=== PATIENT | female | born 1975 | race Caucasian/White ===

== ENCOUNTER 2016-12-23 22:20 | Observation (INO) | payer OTHER ==
[~2016-12-23] VITALS: Ht 175.3 cm; Wt 48.1 kg
[2016-12-24] VITALS (19 sets, daily range): BP systolic 79–121; BP diastolic 41–77
--- NOTE | 2016-12-24 03:36 | Progress Note ---
Subjective General Admission History and Physical Examination Patient Name: Radha Ruiz Admission Date: December 24, 2016 Primary Care Provider: Laly Ye M.D. Attending Physician: Hugo Sharma M.D. Admitting Physician: Hugo Sharma M.D. 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 [facility] ER evaluation was consistent with cystitis in setting of chronic suprapubic catheter, hypotension. Secondary to the above, the patient was admitted by Hugo Sharma M.D. for further evaluation and treatment. The history of present illness began 1-2 days prior to admission when the patient had episodes of mild nausea without vomiting, generalized feeling of weakness, episodes of diaphoresis, these were unassociated with fever or chills. Secondary to the above the patient presented to [facility] emergency department due to suspected UTI. [facility] ER evaluation showed the patient to have normal vital signs other than development of hypotension in the emergency department. She was afebrile. WBC was within normal limits. Procalcitonin was within normal limits. Her SIRS/QSOFA were unremarkable. Lactic acid was elevated but repeat was within normal limits. Urine sediment was abnormal however this occurred in the setting of chronic suprapubic catheter. Secondary to her hypotension of unknown etiology the patient was admitted for further evaluation and treatment. PAST MEDICAL HISTORY Illnesses: 1. Quadriplegia secondary to spinal cord AVM 2. Recurrent UTI 3. Cholelithiasis 4. Chronic pain syndrome Allergies: 1. Penicillin 2. Bactrim 3. Phenergan 4. Levaquin Medications: 1. Baclofen 20 mg 1 by mouth 5 times a day 2. Citalopram 20 mg by mouth daily 3. Gabapentin 600 mg by mouth 4 times a day 4. Lorazepam 2 mg by mouth daily at bedtime 5. Vitamin D dosage unknown Surgery: 1. Endoscopy 2. Suprapubic catheter placement 3. Embolization-AVM Injuries: 1. No significant Hospitalizations: 1. For above surgery and medical problems FAMILY HISTORY Parents: 1. Father, Chet, , 60, alcoholic cirrhosis, 2. Mother, Lisandra, living, 61, COPD, drug abuse, heart disease, adrenal insufficiency Siblings: 1. Female, Idris, living, 31, drug abuse Children: 1. None Other significant family history: None SOCIAL HISTORY 1. Marital Status: 2. Church: None 3. Education: College, bachelors degree 4. Employment History: Unemployed 5. Occupational health exposures: None HABITS 1. Tobacco: None 2. Drugs: None 3. Alcohol: None 4. Caffeine: 2 cups per day-coffee HEALTH SUPERVISION Item/Test 1. Not reviewed IMMUNIZATIONS: 1. Pneumococcal: No previous 2. Influenza: 2016 3. Tetanus: Unknown ADVANCED DIRECTIVES: 1. Living well: Yes 2. POLST: Yes 3. CODE STATUS: FULL CODE 4. Durable Power Claims Configuration Analyst Health care: Yes, 5. Donor card: No REVIEW OF SYSTEMS Remarkable for those things stated in the history of present illness and past medical history. Seventeen point review of system completed with the following notable findings: General: Weight loss, fatigue, pain, weakness Skin: Skin/hair changes Eyes: Excessive tearing, dryness, blurred vision Throat: Hoarseness, swallowing, sore throat Respiratory: Shortness of breath Cardiovascular: Hypotension, shortness of breath when lying flat Gastrointestinal: Nausea, loss of appetite, heartburn, constipation, cholelithiasis Musculoskeletal: Joint stiffness, joint pain, muscle cramping Neurological: Paralysis-quadriplegia, sensation changes Endocrine: Thyroid problems, heat/cold intolerance, excessive thirst/urination Psychological: Depression, difficulty sleeping, anxiety Genitalia: Irregular heavy periods Physical Exam General Appearance Alert, Oriented X3, Cooperative, No acute distress HEENT Atraumatic, PERRLA, EOMI, Moist mucous membranes Lungs Clear to auscultation, Normal air movement Neck Supple, No JVD Cardiovascular Regular rate and rhythm, Normal S1 and S2, No murmurs, gallops, rubs Abdomen Normal bowel sounds, Soft, No guarding, mild diffuse tenderness Extremities No cyanosis, No clubbing, No edema Skin No Rashes, No Breakdown Neurological quadriplegia Psych/Mental Status Mental status normal, Mood normal LAB Results Laboratory Tests 12/24 12/24 12/23 12/23 0115 0001 2330 2327 Chemistry Lactic Acid (0.4 - 2.0 mmol/L) 0.9 4.7 Procalcitonin (0 - 0.5 ng/mL) <0.5 Toxicology Urine Opiates Screen (NEGATIVE) NEGATIVE Urine Methadone Screen (NEGATIVE) NEGATIVE Ur Barbiturates Screen (NEGATIVE) NEGATIVE U Amphetamin/Meth Scrn (NEGATIVE) NEGATIVE MDMA (Ecstasy) Screen (NEGATIVE) NEGATIVE U Benzodiazepines Scrn (NEGATIVE) NEGATIVE Urine Cocaine Screen (NEGATIVE) NEGATIVE U Cannabinoids Screen (NEGATIVE) NEGATIVE Urines Urine Color YELLOW Urine Appearance CLEAR Urine pH (5.0 - 8.0) 6.0 Ur Specific [place] (1.010 - 1.030) >= 1.030 Urine Protein (NEGATIVE) TRACE Urine Ketones (NEGATIVE) 3+ Urine Blood (NEGATIVE) 3+ Urine Nitrite (NEGATIVE) POSITIVE Urine Bilirubin (NEGATIVE) 1+ Urine Urobilinogen (0.2 - 1.0 EU/dL) 1.0 Ur Leukocyte Esterase (NEGATIVE) NEGATIVE Urine RBC (0 - 1 rbc/hpf) 5-10 Urine WBC (0 - 1 wbc/hpf) 0-1 Ur Epithelial Cells (0 - 5 EPI/hpf) 0-1 Urine Bacteria (NONE SEEN) FEW (1+) Urine Glucose (NEGATIVE) NEGATIVE Urine Comment CULTURE INDICATED 12/23 2327 Chemistry Plasma Sodium (136 - 145 mmol/L) 142 Plasma Potassium (3.5 - 5.1 mmol/L) 4.0 Plasma Chloride (98 - 107 mmol/L) 100 CO2 (Enzymatic) (21 - 32 mmol/L) 31 BUN (7 - 18 mg/dL) 9 Creatinine (0.6 - 1.3 mg/dL) 0.6 Est GFR ( Amer) (mL/min) >60 Est GFR (Non-Af Amer) (mL/min) >60 Glucose (70 - 110 mg/dL) 150 Plasma Calcium (8.5 - 10.1 mg/dL) 8.8 Plasma Magnesium (1.8 - 2.4 mg/dL) 1.4 Total Bilirubin (0.0 - 1.0 mg/dL) 0.5 AST (15 - 37 U/L) 13 ALT (12 - 78 U/L) 14 Alkaline Phosphatase (46 - 116 U/L) 48 Creatine Kinase (24 - 260 U/L) 39 Troponin (0.00 - 1.5 ng/mL) <0.05 Total Protein (6.4 - 8.2 g/dL) 7.2 Albumin (3.3 - 5.0 g/dL) 3.5 Lipase (73 - 393 U/L) 78 TSH 3rd Generation (0.34 - 3.74 uIU/mL) 1.534 Hematology WBC (4.5 - 11.5 K/uL) 9.3 RBC (4.00 - 5.20 M/uL) 4.64 Hgb (12.0 - 16.0 gm/dL) 13.1 Hct (36.0 - 46.0 %) 41.1 MCV (80 - 100 fL) 89 MCH (26 - 34 pg) 28 RDW (11.6 - 14.8 %) 13.0 Gran % (53 - 90) 84.6 Lymph % (Auto) (25 - 40 %) 12.5 [place] % (Auto) (3 - 14 %) 2.9 Plt Count, EDTA (150 - 400 K/uL) 223 PUBS MCHC (31 - 37 g/dL) 32 Microbiology Date/Time Procedure - Status Source Growth 12/24 0040 Blood Culture - RECD BLOOD 12/24 0001 Blood Culture - RECD BLOOD 12/23 2330 Urine Culture - RECD URINE CC Imaging Chest X-Ray IMPRESSION: 1. Negative chest. Dictated by: SATHISH NUNEZ MD D: HAYLIE;12/24/[address] Scan Abdomen and Pelvis IMPRESSION: 1. Cholelithiasis 2. Moderate stool 3. Preliminary results submitted by Dr. Washington, [facility] radiology. All CT scans at this facility use dose modulation, iterative reconstruction, and/or weight-based dosing when appropriate to reduce radiation dose to as low as reasonably achievable. Dictated by: SATHISH NUNEZ MD D: HAYLIE;12/24/16 0530 Assessment and Plan Problem List 1. Hypotension Plan -Patient noted to have findings of hypertension in the emergency department -IV fluid therapy with correction of hypotension -SIRS/QSOFA negative -Blood pressure normalized at this time with normal vital signs no tachycardia or fever. -Probably mild dehydration on presentation, urine specific gravity 1 0.030 -IV fluid therapy, encourage oral intake -Monitor 2. UTI (urinary tract infection) due to urinary indwelling catheter Plan -Patient with abnormal urinary sediment in setting of chronic suprapubic catheter. -Patient afebrile, normal WBC, normal Procalcitonin -Hold antimicrobial therapy at this time -Recheck CBC with manual differential, Procalcitonin this a.m. 3. Cholelithiasis Status Chronic Onset Date Unknown Plan -Patient with findings of cholelithiasis-chronic -No right upper quadrant pain -Liver function tests unremarkable -No findings of cholecystitis on CT -Monitor 4. Hypomagnesemia Status Acute Onset Date Unknown Plan -Patient with findings of hypomagnesemia -IV/oral magnesium supplementation -Slow-Mag one by mouth 3 times a day, mag sulfate 2 g IV -Monitor 5. Hyperglycemia Status Acute Onset Date Unknown Plan -Patient with mild hyperglycemia -Check hemoglobin A1c -Monitor Current status: Fair, unstable Anticipated discharge date: Anticipated discharge this p.m. or in a.m. Anticipated discharge placement: Home Patient care time: Time spent in chart review, patient interview, physical exam, CPOE, and care documentation: 70 minutes Visit to patient today: 2 Complexity of care: High E&M Codes Admission: Obsv-Comp/High/[id number]
--- NOTE | 2016-12-24 05:19 | DIAGNOSTIC IMAGING REPORT ---
PROCEDURE: XR CHEST 1 VIEW INDICATION: UTI TECHNIQUE: Portable AP view 01:02 a.m. COMPARISON: Chest x-ray 03/13/2016 FINDINGS: Lungs are clear. Heart and mediastinum are normal. Thorax is normal. No significant interval change. IMPRESSION: 1. Negative chest.
[2016-12-24] MEDS ORDERED: GABAPENTIN600 MG PO (05:27)
[2016-12-24] MEDS ORDERED: ATIVAN1 MG PO (05:28)
[2016-12-24] MEDS ORDERED: BACLOFEN20 MG PO (05:28)
[2016-12-24] MEDS ORDERED: CITALOPRAM HYDR20 MG PO (05:29)
[2016-12-24] MEDS ORDERED: VITAMIN D-31000 UNIT PO (05:29)
--- NOTE | 2016-12-24 05:30 | DIAGNOSTIC IMAGING REPORT ---
PROCEDURE: CT ABD/PELVIS WITH CONTRAST CLINICAL INDICATION: PAIN TECHNIQUE: 100 ml of Isovue 300 were injected intravenously and axial images were obtained of the entire abdomen and pelvis with sagittal and coronal reformations. COMPARISON: None. FINDINGS: ABDOMEN: Mild right basilar atelectasis/scarring. Normal heart size. 1.5 cm of cysts in the hepatic dome. Small gallstones present but no biliary distention or inflammatory changes. Pancreas, spleen, kidneys and adrenal glands are normal. Minor atherosclerosis of the aorta. Nonspecific bowel gas pattern. Moderate stool. PELVIS: Suprapubic catheter in place. Uterus and adnexa are unremarkable. Normal appendix. No free fluid or inflammatory changes. Muscular atrophy of the pelvic girdle. Marked levoconvex curvature of the spine. Severe osteopenia. IMPRESSION: 1. Cholelithiasis 2. Moderate stool 3. Preliminary results submitted by Dr. Washington, [facility] radiology. All CT scans at this facility use dose modulation, iterative reconstruction, and/or weight-based dosing when appropriate to reduce radiation dose to as low as reasonably achievable.
[2016-12-25 02:06] VITALS: BP 111/70
--- NOTE | 2016-12-25 02:29 | ED DISCHARGE INSTRUCTIONS ---
Patient: ANGELINE SCHUMACHER CANDICE General Instructions [facility]ly [facility] VisitID: [id number] [place] [address] 41y, F Registration Date/Time: 12/23/2016 Idiopathic hypotension. Gallbladder disease with gallstone. No gallstone in the cystic or bile duct, obstruction, cholecystitis or biliary colic. No cholangitis. Constipation Acute urinary tract infection with cystitis associated with indwelling catheter. 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 INSTRUCTIONS Prescription Medications: Macrobid 100 mg: Take 1 capsule orally every 12 hours for 7 days. No refills. Substitution is permissible. ADDITIONAL INFORMATION Constipation (Adult) Constipation is bowel movements that are less frequent than usual. Stools often become very hard and difficult to pass. This may lead to abdominal pain and bloating. It may also cause painful bowel movements. Constipation may be due to a diet thats low in fiber. Some medications, especially pain medications, can also cause it. Constipation may be treated with enemas, suppositories, laxatives or stool softeners. Your doctor will advise you which will work best for you. Follow the advice below to help avoid this problem in the future. Home Care Medication: Take any medicines as directed. Some laxatives are safe only for occasional use. Others can be taken on a regular basis. Talk to your doctor or pharmacist if you have questions. General Care: Prescription pain medications can cause constipation. If you are prescribed pain medications, ask the doctor whether you should also take a stool softener. A diet high in fiber with plenty of fluids helps to maintain regular, soft bowel movements. The following foods are good sources of dietary fiber: Cereals and breads: Whole grain cereal with bran, oatmeal, rolled oats, whole grain breads Fruits: All fruits (fresh and dried), raisins, prunes, apricots, berries, figs Vegetables: Any fresh vegetables, especially peas, broccoli, brussels sprouts, winter squash, green beans, cauliflower, hagen beans, carrots Other: Popcorn, brown rice Drink plenty of water when you increase the amount of fiber you eat. Follow Up with your doctor or return to this facility if symptoms do not improve in the next few days. You may require further tests or a referral to a specialist. Get Prompt Medical Attention if any of the following occur: Fever over 100.4F (38C) Failure to resume normal bowel movements Increasing abdominal or back pain Nausea or vomiting Abdominal swelling Blood in the stool Weakness, dizziness or fainting Unexpected vaginal bleeding You have been given the following additional information: Constipation (Adult) (Electronically signed by Aaron Zapata DO 12/24/2016 4:05)
--- NOTE | 2016-12-25 02:29 | ED CLINICAL REPORT ---
Clinical Report - Physicians/Mid Levels [facility] [address], [place] [address] 12/24/2016 0:58 Patient: ANGELINE SCHUMACHER Time Seen: 22:45. Arrived- By ambulance. Historian- patient and EMS personnel. HISTORY OF PRESENT ILLNESS Chief Complaint: PELVIC PAIN and WEAKNESS. This started yesterday and is still present. It was gradual in onset and has been waxing/waning. At its maximum, severity described as moderate. When seen in the E.D., severity described as moderate. Modifying factors. Not worsened by anything. Not relieved by anything. No headache. She has had fatigue, muscle aches and weakness. (Pt with generalized weakness, nausea and lower / suprapubic area pain today. States this is similar to prior episodes of UTI. She has noted increased cloudiness and odor to her urine. She also reports constipation (no BM in 7 days). 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 Similar symptoms previously: Diagnosis: (UTI). Recent medical care: Not recently seen/assessed. REVIEW OF SYSTEMS The patient has had a subjective low grade fever (possible). No sore throat, sinus drainage, nasal congestion, difficulty breathing or chest pain. No vomiting, diarrhea, black stools, bloody stools or difficulty with urination. No skin rash, calf pain or headache. The patient has had moderate, constant abdominal pain. The pain is described as located in the suprapubic region and lower abdomen. This abdominal pain is similar to previous symptoms. She has had difficulty with ambulation (quadriplegic). It has been associated with weakness in both legs. It has been similar to previous symptoms. All systems otherwise negative, except as recorded above. PAST HISTORY See nurses notes. Quadriplegia secondary to spinal AVM. Frequent UTI's Gallstone(s). Arteriovenous Malformation. Prior decubitus ulcer left buttock area Surgeries: Embolizations of spinal cord AVM. Endoscopy. Supra pubic catheter. Medications: Neurontin Oral. LORazepam Oral. Citalopram Hydrobromide Oral. Baclofen External. Allergies: Amoxicillin. Bactrim. Levaquin. Phenergan. SOCIAL HISTORY No alcohol use or drug use. Is a local resident. PCP: Mai Ellis. ADDITIONAL NOTES The nursing notes have been reviewed. PHYSICAL EXAM Vital Signs: Blood pressure: BP 107 / 75. Heart rate: 87. Respiratory rate 18. Temperature: 97.2 tympanic. Oxygen saturation: 95 % room air. Appearance: Alert. Lethargic. Patient in mild distress. Eyes: Eyes normal inspection. No scleral icterus or pale conjunctivae. ENT: Pharynx normal. No pharyngeal erythema or tonsillar exudate. The mucous membranes are not dry. Neck: Normal inspection. Neck supple. CVS: Normal heart rate and rhythm. Heart sounds normal. Pulses normal. Respiratory: No respiratory distress. Breath sounds normal. Abdomen: No visible injury. Soft. Moderate tenderness in the lower abdomen. No mass. No rebound tenderness or guarding. Back: Normal inspection. Skin: Skin warm and dry. Normal skin color. (Superficial left gluteal area decubitus ulcer). Extremities: No calf tenderness. (Superficial left gluteal area decubitus ulcer). Neuro: Oriented X 3. She has had weakness, (flacid paralysis bilateral upper and lower extremities). LABS, X-RAYS, AND EKG EKG: EKG time: (03:11). Rate: 90. Nondiagnostic Q waves in lead aVR and V1. Left axis deviation. Non-specific ST segment / T wave abnormalities. Non-specific T wave flattening (diffusely). The study has been interpreted contemporaneously by me. The EKG appears to be a good tracing. Rhythm Strip #1: Normal sinus rhythm. Regular rhythm. No ectopy. Non-specific ST segment / T-wave abnormalities. Chest X-ray: Normal lung markings present. Normal heart size. Mediastinum normal. Great vessels normal. No infiltrate. (possible dilated loops of bowel / small bowel). Views: erect AP (portable). Technique: rotated. The X-rays were interpreted contemporaneously by me. Abdominal CT: Gallstone present. Normal pancreas. Appendix normal. Cholelithiasis Mildly increased amount of colonic stool. No evidence of obstruction. No findings to suggest hydronephrosis Urinary bladder is nearly empty, limiting study Likely dome of liver cyst. Study type: abdomen and pelvis. Abdominal CT performed with IV contrast. The study was independently viewed by me, interpreted by the radiologist and discussed with the radiologist. Laboratory Tests: [id number]: (YUMIKO: 12/24/2016 00:01) ( MsgRcvd 12/24/2016 03:19) Final results Test Result Flag Units (Reference) PROCALCITONIN <0.5 ng/mL (0-0.5) PCT Concentration: Interpretation : Risk/option for action PCT <=0.5 ng/mL : Systemic : Low risk forinfection(sepsis): progression to severeis not likely. : systemic infection.Local bacterial : CAUTION-PCT levelsinfection is : below 0.5 ng/mL do notpossible. : exclude an infection,because localizedinfections (withoutsystemic signs) may beassociated with suchlow levels. If PCT ismeasured very earlyafter a bacterialchallenge (usually <6hours), these valuesmay still be low. Inthis case PCT shouldbe re-assessed 6-24hours later. PCT >0.5 and : Systemic infection: Moderate risk for<= 2 ng/mL : (sepsis) is : progression to severepossible, but : systemic infection.other conditions : The patient should beare known to : closely monitoredelevate PCT. : both clinically andby re-assessing PCTwithin 6-24 hours. PCT > 2 ng/mL : Systemic infection: High risk for(sepsis) is likely: progression to severeunless other : systemic infection.causes are known. : PCT >= 10 ng/mL : Important systemic: High likelihood ofinflammatory : severe sepsis orresponse, almost : septic shock.exclusively due to:severe bacterial :sepsis or septic :shock. : Lactate, Serum: (YUMIKO: 12/24/2016 01:15) ( [facility] 12/24/2016 01:42) Final results Test Result Flag Units (Reference) LACTIC ACID 0.9 mmol/L (0.4-2.0) [id number]: (YUMIKO: 12/23/2016 23:02) ( [facility] 12/24/2016 03:53) Final results Test Result Flag Units (Reference) D-DIMER QUANTITATIVE 0.29 ug/mLFEU (0.27-0.52) The primary value of this quantitative assay relates toits negative predictive value (i.e. exclusion) of pulmonaryembolism/deep vein thrombosis/DIC.Elevated levels of d-dimer may also occur with:, age, cancer, inflammation, liver disease,post-op, infection, hematoma, coronary disease, peripheralarteriopathy, bleeding disorders and thrombolytic treatment.Results should be correlated with other clinical andradiological data.Testing Methodology: Latex Immunoassay . (Repeat lactic acid 0.9 (normal)). CBC: WBC 9.3. Hgb 13.1. HCT 41.1. Platelets 223. Granulocytes: 84%. Chemistries: Na- 142. K- 4.0. Cl- 100. HCO3- 31. Glucose - 150. BUN- 9. Cr- 0.6. Total protein 7.2. Albumin 3.5. Bilirubin: Total: 0.5. AST 13. Alkaline phosphatase 48. Calcium 8.8. Lipase normal 78. Lactic acid positive 4.7. ALT 14. Moderate hypomagnesemia- 1.4. Cardiac Labs: CK 39. Troponin-I < 0.05. Urinalysis: WBCs present (0 - 1). 5-10 RBCs/hpf. Bacteria present (few (1+)). Urine dipstick: Sp Gr 1.030; pH 6; leukocytes negative; nitrite positive; trace protein; glucose normal; moderate ketones; small bilirubin; (blood 3+). Microbiology: Blood culture x2 and urine culture ordered. Pulse Oximetry: 12/24/2016 01:25 O2 saturation: 96%. (FIO2 - room air). Interpretation: normal. Other Labs: Thyroid stimulating hormone (TSH) 1.534. PROGRESS AND PROCEDURES Course of Care: Normal Saline 2 + liters IVPB given. Ativan 1mg IVP given. Zofran 4 mg IVP given. Ceftriaxone 2 gm IVP given. Pt with SBP in 90's during most of stay, then dropped into the 70's and 80's. Pt is quadriplegic and likely has autonomic instability which may be complicating the clinical picture. Initial lactic acid was elevated, but repeat was normal. Pt's appearance is improved during her stay, despite the low BP. She also is not tachycardic. No CT or plain film evidence of PE, AAA, Ao disection, or pneumonia or cholecystitis / ascending cholangitis. I will hold norepi for now as her hypotension is responding to IV fluids and, other than one elevated lactate, there is no indication of sepsis and there are possible alternative (and more likely) etiologies for her transient hypotension than septic shock 12/24/2016 03:13 BP: 95/55. HR: 94. RR: 14. O2 saturation: 96%. Temp: 97.6 F. Critical care performed (60 minutes). Time includes: direct patient care, patient reassessment, coordination of patient care, interpretation of data (laboratory data, pulse oximetry and chest xrays), review of patient's medical records, family consultation regarding treatment decisions and documentation of patient care- see progress notes. Procedures excluded from critical care time: electrocardiography. Discussed case with hospitalist, (Edith call returned 00:53 - states she does not have admission criteria and requests repeat lactic acid before considering admission). Reviewed test results. Agreed upon treatment plan. Patient/family counseled. Old ED records reviewed. Admission orders written. Disposition: Admitted to the Critical Care Unit. Condition: guarded. CLINICAL IMPRESSION Idiopathic hypotension. Gallbladder disease with gallstone. No gallstone in the cystic or bile duct, obstruction, cholecystitis or biliary colic. No cholangitis. Constipation Acute urinary tract infection with cystitis associated with indwelling catheter. 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 Clinical picture does not suggest cholecystitis. INSTRUCTIONS Prescription Medications: Macrobid 100 mg: Take 1 capsule orally every 12 hours for 7 days. No refills. Substitution is permissible. (Electronically signed by Aaron Zapata DO 12/24/2016 4:05)
--- NOTE | 2016-12-25 02:29 | ED ORDER SUMMARY ---
..... Patient: ANGELINE SCHUMACHER OrderSheet [facility] VisitID: [id number] [address] [place] [address] 41y, F Registration Date/Time: 12/23/2016 ORDER SHEET Weight: 45 kg Allergies: Amoxicillin, Bactrim, Levaquin, Phenergan GENERAL ORDERS: CT Abd/Pel w Cont (No) (BUN and Cr Normal) Urgent (01:09 12/24/2016 [facility]) (Ack 1:14 [facility] Staff Weapons Officer) (1:52 [facility] Staff Weapons Officer) PCT (Procalcitonin) Urgent (02:44 12/24/2016 [facility]) [facility] EKG - ER Stat (02:55 12/24/2016 [facility]) (Ack 2:56 [facility] Staff Weapons Officer) (3:19 CHategekimana) Student Truck Driver (Continuous) (02:56 12/24/2016 [facility]) (3:07 DBeyer R.N.) MEDICATION ORDERS: IV FLUIDS: IV NS : initial bolus 1000 mL (1000 mL/hr), then 1000 mL/hr for X2 (NOW) (01:19 12/24/2016 [facility]) (1:31 DBeyer R.N.) Ceftriaxone IV 2 gm/50mL (NOW) (01:19 12/24/2016 [facility]) (1:31 DBeyer R.N.) Ativan IV 1 mg (HIGH ALERT MEDICATION, NOW) (01:19 12/24/2016 [facility]) (1:33 DBeyer R.N.) Zofran IV 4 mg (may repeat x 1 prn nausea) (02:38 12/24/2016 [facility]) (Ack 2:38 RCollier R.N.) (2:42 RCollier R.N.) ORDER SHEET NOTES: [Electronically signed by Aaron Zapata DO (04:05 12/24/2016)] [Electronically signed by Pb Sampson R.N. (04:15 12/24/2016)] [Electronically locked/signed by Pb Sampson R.N. (04:15 12/24/2016)]
--- NOTE | 2016-12-25 02:29 | ED NURSING NOTES ---
Clinical Report - [facility] [address] [place] [address] 12/24/2016 0:58 Patient: ANGELINE SCHUMACHER TRIAGE Chief Complaint: (weakness). --01:26 Pb Sampson R.N. Weight: 45 kg. Height/Length: 69 inches. BMI: 14.7. --01:27 Pb Sampson R.N. Allergies Amoxicillin. Bactrim. Levaquin. Phenergan. --02:43 Pearl Hayward R.N. PROBLEMS: Suprapubic catheter. Neck Pain. Paralysis. Chronic uti. Gallstone(s). Arteriovenous Malformation. --02:43 Pearl Hayward R.N. ADDITIONAL SURGERIES: Embolizations. Endoscopy. Supra pubic catheter. --02:43 Pearl Hayward R.N. NURSING PROGRESS NOTES ( all charting on paper up till 0120). --01:22 Pb Sampson R.N. ( Pt to CT, 2nd L of fluid started bp 71/49). --01:25 Pb Sampson R.N. 01:25 12/24/16. BP: 71/49. O2 saturation: 96%. --01:25 Pb Sampson R.N. ( MD aware of bp). --01:26 Pb Sampson R.N. 03:40 12/23/2016 Ativan (LORazepam) IVP 0.5 mg given over 2 minute(s) via site #1. Allergies verified, confirmed 5 rights and sedative warning given to the patient. IV patency established. IV site checked: no pain, redness, or swelling. IV flushed thoroughly pre- and post-medication administration. IVP given by RN. --01:33 Pb Sampson R.N. 01:06 12/24/2016 Started 2 gm of Ceftriaxone IVPB in bag #1 50 mL; at 100 mL/hr over 30 minute(s) via site #1 via IV pump. Allergies verified and confirmed 5 rights. IV patency established. IV site checked: no pain, redness, or swelling. IV flushed thoroughly pre- and post-medication administration. Completed per protocol. --: Pb Sampson R.N. 01:12/24/2016 Site #1 started via IV in the right antecubital space with an 22g angiocath; two attempts. Blood drawn: rainbow set and cultures x1. Labeled in the presence of the patient. Saline lock flushed with saline. --01:30 Pb Sampson R.N. 01:12/24/2016 Started bag #2 1000 mL IV Fluids IV NS (Saline); bolus of 1000 mL wide open via site #1. Allergies verified and confirmed 5 rights. IV patency established. IV site checked: no pain, redness, or swelling. IV flushed thoroughly pre- and post-medication administration (Pt received 1L previous). --01: Pb Sampson R.N. 02:42 12/24/2016 Zofran (Ondansetron HCl) IVP 4 mg given over 30 second(s) via site #1. Allergies verified and confirmed 5 rights. IV patency established. IV site checked: no pain, redness, or swelling. IV flushed thoroughly pre- and post-medication administration. IVP given by RN. --02:42 Pearl Hayward R.N. 02:59 12/24/16. Temp: 97.6 F (rectal). --02:59 Pearl Hayward R.N. Patient hygiene performed. Patient is incontinent of stool. Stool described as formed. Changed patient diaper. --03:00 Pearl Hayward R.N. 03:18 12/24/2016 IV Fluids IV NS Continued: upon admission at the rate of 1000 mL/hr bag #3. IV patency established. IV site checked: no pain, redness, or swelling. IV flushed thoroughly. --03:18 Pb Sampson R.N. EKG time: (0311 AM). EKG was ordered, performed by a tech and shown to the ED physician. --03:19 Shavon Huizar. DISPOSITION / DISCHARGE 03:13 12/24/16. BP: 95/55. HR: 94. RR: 14. O2 saturation: 96%. Temp: 97.6 F. Pain level now 11/28. --03:14 Pb Sampson R.N. Patient's personal items include: pajamas, pt still wearing; items were transported with the patient. --03:23 Pb Sampson R.N. Departure time: 1548. --03:49 Pb Sampson R.N. Locked/Released at 12/24/2016 4:15 by Pb Sampson R.N.
--- NOTE | 2016-12-25 02:29 | ED MED RECONCILIATION SUMMARY ---
Patient: ANGELINE SCHUMACHER Medication Reconciliation Report [facility] VisitID: [id number] [address] [place] [address] 41y, F Registration Date/Time: 12/23/2016 Weight: 45 kg Height/Length: 69 in. BMI: 14.7 ALLERGIES: Amoxicillin, Bactrim, Levaquin, Phenergan The patient's Home Medications are listed below: THE FOLLOWING MEDICATIONS NEED TO BE RECONCILED: Baclofen External Citalopram Hydrobromide Oral LORazepam Oral Neurontin Oral The source(s) of the original Home Medication information: Not obtained. The following Medications were given to the patient in the Emergency Department: IV NS IV Fluids bolus 1000 mL wide open, administered: 12/24/2016 1:30:00 AM Ceftriaxone [IVPB] IVPB bolus 0, then 2 gm 100 mL/hr, administered: 12/24/2016 1:06:00 AM Ativan [IVP] IVP 0.5 mg, administered: 12/23/2016 3:40:00 AM Zofran [IVP] IVP 4 mg, administered: 12/24/2016 2:42:00 AM The following Medications were prescribed to the patient: Macrobid 100 mg: Take 1 capsule orally every 12 hours for 7 days. No refills. Substitution is permissible. -- Aaron Zapata DO
--- NOTE | 2016-12-25 02:29 | ED MAR SUMMARY ---
..... Medication Administration Record [facility] [address] [place] [address] Patient: ANGELINE SCHUMACHER Visit ID: [id number] 41y, F Weight: 45.0 kg Height/Length: 69 in BMI: 14.7 ALLERGIES: Phenergan, Bactrim, Levaquin, Amoxicillin Given 03:40 12/23/2016 Pb Sampson RYamilaNYamila Medication Administered: ATIVAN [IVP] (LORAZEPAM), Dose: 0.5 mg IVP over 2 minute(s), Site: #1. Medication Ordered: Ativan IV 1 mg (HIGH ALERT MEDICATION, NOW). Start 01:06 12/24/2016 Pb Sampson R.N. Medication Administered: CEFTRIAXONE [IVPB], Dose: 2 gm IVPB over 30 minute(s), Rate: 100 mL/hr, Dispensed: 50 mL bag, Site: #1. Medication Ordered: Ceftriaxone IV 2 gm/50mL (NOW). Start 01:30 12/24/2016 Pb Sampson RYamilaNYamila, Continued Upon Admission 03:18 12/24/2016 Pb Sampson R.N. Medication Administered: IV NS (SALINE), Dose: IV Fluids, Bolus: 1000 mL wide open, Dispensed: 1000 mL bag, Site: #1 right AC. Medication Ordered: IV NS : initial bolus 1000 mL (1000 mL/hr), then 1000 mL/hr for X2 (NOW). Given 02:42 12/24/2016 Pearl Hayward RYamilaNYamila Medication Administered: ZOFRAN [IVP] (ONDANSETRON HCL), Dose: 4 mg IVP over 30 second(s), Site: #1 right AC. Medication Ordered: Zofran IV 4 mg (may repeat x 1 prn nausea).
--- NOTE | 2016-12-25 02:29 | ED MED RECONCILIATION SUMMARY ---
Patient: ANGELINE SCHUMACHER Medication Reconciliation Report [facility] VisitID: [id number] [address] [place] [address] 41y, F Registration Date/Time: 12/23/2016 Weight: 45 kg Height/Length: 69 in. BMI: 14.7 ALLERGIES: Amoxicillin, Bactrim, Levaquin, Phenergan The patient's Home Medications are listed below: THE FOLLOWING MEDICATIONS NEED TO BE RECONCILED: Baclofen External Citalopram Hydrobromide Oral LORazepam Oral Neurontin Oral The source(s) of the original Home Medication information: Not obtained. The following Medications were given to the patient in the Emergency Department: IV NS IV Fluids bolus 1000 mL wide open, administered: 12/24/2016 1:30:00 AM Ceftriaxone [IVPB] IVPB bolus 0, then 2 gm 100 mL/hr, administered: 12/24/2016 1:06:00 AM Ativan [IVP] IVP 0.5 mg, administered: 12/23/2016 3:40:00 AM Zofran [IVP] IVP 4 mg, administered: 12/24/2016 2:42:00 AM The following Medications were prescribed to the patient: Macrobid 100 mg: Take 1 capsule orally every 12 hours for 7 days. No refills. Substitution is permissible. -- Aaron Zapata DO
--- NOTE | 2016-12-25 02:29 | ED DISCHARGE INSTRUCTIONS ---
Patient: ANGELINE SCHUMACHER CANDICE General Instructions [facility] VisitID: [id number] [place] [address] 41y, F Registration Date/Time: 12/23/2016 Idiopathic hypotension. Gallbladder disease with gallstone. No gallstone in the cystic or bile duct, obstruction, cholecystitis or biliary colic. No cholangitis. Constipation Acute urinary tract infection with cystitis associated with indwelling catheter. 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 INSTRUCTIONS Prescription Medications: Macrobid 100 mg: Take 1 capsule orally every 12 hours for 7 days. No refills. Substitution is permissible. ADDITIONAL INFORMATION Constipation (Adult) Constipation is bowel movements that are less frequent than usual. Stools often become very hard and difficult to pass. This may lead to abdominal pain and bloating. It may also cause painful bowel movements. Constipation may be due to a diet thats low in fiber. Some medications, especially pain medications, can also cause it. Constipation may be treated with enemas, suppositories, laxatives or stool softeners. Your doctor will advise you which will work best for you. Follow the advice below to help avoid this problem in the future. Home Care Medication: Take any medicines as directed. Some laxatives are safe only for occasional use. Others can be taken on a regular basis. Talk to your doctor or pharmacist if you have questions. General Care: Prescription pain medications can cause constipation. If you are prescribed pain medications, ask the doctor whether you should also take a stool softener. A diet high in fiber with plenty of fluids helps to maintain regular, soft bowel movements. The following foods are good sources of dietary fiber: Cereals and breads: Whole grain cereal with bran, oatmeal, rolled oats, whole grain breads Fruits: All fruits (fresh and dried), raisins, prunes, apricots, berries, figs Vegetables: Any fresh vegetables, especially peas, broccoli, brussels sprouts, winter squash, green beans, cauliflower, hagen beans, carrots Other: Popcorn, brown rice Drink plenty of water when you increase the amount of fiber you eat. Follow Up with your doctor or return to this facility if symptoms do not improve in the next few days. You may require further tests or a referral to a specialist. Get Prompt Medical Attention if any of the following occur: Fever over 100.4F (38C) Failure to resume normal bowel movements Increasing abdominal or back pain Nausea or vomiting Abdominal swelling Blood in the stool Weakness, dizziness or fainting Unexpected vaginal bleeding You have been given the following additional information: Constipation (Adult) (Electronically signed by Aaron Zapata DO 12/24/2016 4:05)
--- NOTE | 2016-12-25 02:29 | ED MAR SUMMARY ---
..... Medication Administration Record [facility] [address] [place] [address] Patient: ANGELINE SCHUMACHER Visit ID: [id number] 41y, F Weight: 45.0 kg Height/Length: 69 in BMI: 14.7 ALLERGIES: Phenergan, Bactrim, Levaquin, Amoxicillin Given 03:40 12/23/2016 Pb Sampson RYamilaNYamila Medication Administered: ATIVAN [IVP] (LORAZEPAM), Dose: 0.5 mg IVP over 2 minute(s), Site: #1. Medication Ordered: Ativan IV 1 mg (HIGH ALERT MEDICATION, NOW). Start 01:06 12/24/2016 Pb Sampson R.N. Medication Administered: CEFTRIAXONE [IVPB], Dose: 2 gm IVPB over 30 minute(s), Rate: 100 mL/hr, Dispensed: 50 mL bag, Site: #1. Medication Ordered: Ceftriaxone IV 2 gm/50mL (NOW). Start 01:30 12/24/2016 Pb Sampson RYamilaNYamila, Continued Upon Admission 03:18 12/24/2016 Pb Sampson R.N. Medication Administered: IV NS (SALINE), Dose: IV Fluids, Bolus: 1000 mL wide open, Dispensed: 1000 mL bag, Site: #1 right AC. Medication Ordered: IV NS : initial bolus 1000 mL (1000 mL/hr), then 1000 mL/hr for X2 (NOW). Given 02:42 12/24/2016 Pearl Hayward RYamilaNYamila Medication Administered: ZOFRAN [IVP] (ONDANSETRON HCL), Dose: 4 mg IVP over 30 second(s), Site: #1 right AC. Medication Ordered: Zofran IV 4 mg (may repeat x 1 prn nausea).
--- NOTE | 2016-12-25 02:29 | ED ORDER SUMMARY ---
..... Patient: ANGELINE SCHUMACHER OrderSheet [facility] VisitID: [id number] [address] [place] [address] 41y, F Registration Date/Time: 12/23/2016 ORDER SHEET Weight: 45 kg Allergies: Amoxicillin, Bactrim, Levaquin, Phenergan GENERAL ORDERS: CT Abd/Pel w Cont (No) (BUN and Cr Normal) Urgent (01:09 12/24/2016 [facility]) (Ack 1:14 CHagerty ER Squad Leader) (1:52 [facility]ty ER Squad Leader) PCT (Procalcitonin) Urgent (02:44 12/24/2016 [facility] EKG - ER Stat (02:55 12/24/2016 [facility]) (Ack 2:56 [facility] ER Squad Leader) (3:19 CHategekimana) Partner Management Consultant (Continuous) (02:56 12/24/2016 [facility]) (3:07 DBeyer R.N.) MEDICATION ORDERS: IV FLUIDS: IV NS : initial bolus 1000 mL (1000 mL/hr), then 1000 mL/hr for X2 (NOW) (01:19 12/24/2016 [facility]) (1:31 DBeyer R.N.) Ceftriaxone IV 2 gm/50mL (NOW) (01:19 12/24/2016 [facility]) (1:31 DBeyer R.N.) Ativan IV 1 mg (HIGH ALERT MEDICATION, NOW) (01:19 12/24/2016 [facility]) (1:33 DBeyer R.N.) Zofran IV 4 mg (may repeat x 1 prn nausea) (02:38 12/24/2016 [facility]) (Ack 2:38 RCollier R.N.) (2:42 RCollier R.N.) ORDER SHEET NOTES: [Electronically signed by Aaron Zapata DO (04:05 12/24/2016)] [Electronically signed by Pb Sampson R.N. (04:15 12/24/2016)] [Electronically locked/signed by Pb Sampson R.N. (04:15 12/24/2016)]
[2016-12-25 05:49] VITALS: BP 112/72
[2016-12-25 10:50] VITALS: BP 96/59
--- NOTE | 2016-12-25 13:47 | Progress Note ---
Subjective General Patient seen and examined. Patient reassured that there was nothing that pointed to an underlying illness or infection. Patient is feeling much better this morning and is amenable to being discharged. Constitutional Denies: Fever, Chills, Sweats, Weakness, Malaise, Other. Eyes Denies: Pain, Vision Change, Conjunctival Inflammation, Eyelid Inflammation, Redness, Other. Respiratory Denies: Cough, Dry, SOB w/exertion, Wheezing, Hemoptysis, Pleuritic Pain, Sputum , Other. Cardiovascular Denies: Chest Pain, Palpitations, Orthopnea, PND, Edema, Light-headedness, Other. Gastrointestinal Denies: Nausea, Vomiting, Abdominal Pain, Diarrhea, Constipation, Melena, Hematochezia, Other. Genitourinary Denies: Dysuria, Frequency, Incontinence, Hematuria, Retention, Other. Musculoskeletal Denies: Neck Pain, Shoulder Pain, Arm Pain, Back Pain, Hand Pain, Leg Pain, Foot Pain, Other. Skin Denies: Rash, Lesions, Jaundice, Bruising, Other. Neurological Denies: Weakness, Numbness, Incoordination, Change in speech, Confusion, Seizures, Other. Physical Exam Vital Signs / I&Os Vital Signs Date Time Temp Pulse Resp B/P Pulse O2 O2 Flow FiO2 Ox Delivery Rate 12/25 1050 98.2 75 16 96/59 94 12/25 0549 97.5 64 16 112/72 100 Room Air 12/25 0206 96.6 64 15 111/70 97 Room Air 12/24 2242 98.2 87 18 93/51 97 Room Air 12/24 2038 78 25 91/53 97 Room Air 12/24 1934 74 20 84/47 95 Room Air 12/24 1835 93/54 12/24 1832 98.1 78 15 79/42 100 Room Air 12/24 1714 78 19 97/55 98 Room Air 12/24 1614 98.2 79 16 88/47 98 Room Air I&O 12/24 0800 08 1600 12/25 0000 Intake Total 487 0 2356 Output Total 500 425 400 Balance -1955 General Appearance Alert, Oriented X3, No acute distress Lungs Clear to auscultation, Normal air movement Cardiovascular Regular rate and rhythm, Normal S1 and S2, No murmurs, gallops, rubs Abdomen Normal bowel sounds, Soft, No tenderness, No guarding, No rebound, No masses, No hepatosplenomegaly Extremities No cyanosis, No clubbing, No edema, Normal pulses, No tenderness, Strength = upper ext's, Strength = lower ext's Skin No Rashes, No Breakdown, No Significant Lesions Neurological - pt is quadrapalegic, no new focal neurological deficits Psych/Mental Status Mental status normal LAB Results Laboratory Tests 12/25 12/25 0450 0450 Chemistry Plasma Sodium (136 - 145 mmol/L) 143 Plasma Potassium (3.5 - 5.1 mmol/L) 3.2 Plasma Chloride (98 - 107 mmol/L) 109 CO2 (Enzymatic) (21 - 32 mmol/L) 24 BUN (7 - 18 mg/dL) 2 Creatinine (0.6 - 1.3 mg/dL) 0.3 Est GFR ( Amer) (mL/min) >60 Est GFR (Non-Af Amer) (mL/min) >60 Glucose (70 - 110 mg/dL) 88 Plasma Calcium (8.5 - 10.1 mg/dL) 7.7 Total Bilirubin (0.0 - 1.0 mg/dL) 0.3 AST (15 - 37 U/L) 11 ALT (12 - 78 U/L) 9 Alkaline Phosphatase (46 - 116 U/L) 31 Total Protein (6.4 - 8.2 g/dL) 4.9 Albumin (3.3 - 5.0 g/dL) 2.3 Cortisol AM Sample Pending Hematology WBC (4.5 - 11.5 K/uL) 3.4 RBC (4.00 - 5.20 M/uL) 3.58 Hgb (12.0 - 16.0 gm/dL) 10.3 Hct (36.0 - 46.0 %) 31.7 MCV (80 - 100 fL) 89 MCH (26 - 34 pg) 29 RDW (11.6 - 14.8 %) 13.4 Neut % (Auto) (50 - 75 %) 44.6 Lymph % (Auto) (25 - 40 %) 43.6 [place] % (Auto) (3 - 14 %) 9.0 Eos % (Auto) (0 - 4 %) 2.2 Baso % (Auto) (0 - 2 %) 0.6 Plt Count, EDTA (150 - 400 K/uL) 144 PUBS MCHC (31 - 37 g/dL) 33 Microbiology Date/Time Procedure - Status Source Growth 12/25 1599 Influenza Screen - CAN NASALPHAR Cancelled: DUPLICATE. 12/25 1599 Influenza Screen - COMP NASALPHAR Assessment and Plan Problem List 1. Hypotension Plan - secondary to autonomic dysfunction and dehydration - patients pressures have improved significantly after receiving 3 liters of fluid - will continue to trend until discharge 2. Cholelithiasis Status Chronic Onset Date Unknown Plan - no abdominal pain or food intolerance - stable - no further work up needed 3. UTI (urinary tract infection) due to urinary indwelling catheter Plan - indwelling catheter - normal bacteria hank
[2016-12-25 15:48] VITALS: BP 95/60
[2016-12-25] MEDS ORDERED: VALIUM2 MG PO (15:55)
--- NOTE | 2016-12-25 15:57 | Provider's Discharge Care Plan ---
Problem, Goal, Plan Problem List 1. Hypotension Instructions: - resolved - increase your fluid intake, you should be averaging 8 glasses of water a day 2. Cholelithiasis Instructions: - you have gallstones but no evidence of gallbladder infection - if you develop uncontrolled nausea and vomiting please return to hospital 3. Anxiety Instructions: - you were treated for anxiety and associated muscle spasm - take the valium as needed for the anxiety and muscle spasms
--- NOTE | 2016-12-25 16:03 | Discharge Summary ---
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 [facility] ER evaluation was consistent with cystitis in setting of chronic suprapubic catheter, hypotension. Secondary to the above, the patient was admitted by Hugo Sharma M.D. for further evaluation and treatment. The history of present illness began 1-2 days prior to admission when the patient had episodes of mild nausea without vomiting, generalized feeling of weakness, episodes of diaphoresis, these were unassociated with fever or chills. Secondary to the above the patient presented to [facility] emergency department due to suspected UTI. [facility] ER evaluation showed the patient to have normal vital signs other than development of hypotension in the emergency department. She was afebrile. WBC was within normal limits. Procalcitonin was within normal limits. Her SIRS/QSOFA were unremarkable. Lactic acid was elevated but repeat was within normal limits. Urine sediment was abnormal however this occurred in the setting of chronic suprapubic catheter. Secondary to her hypotension of unknown etiology the patient was admitted for further evaluation and treatment. Hospital Course Patient was admitted for hypotension and general malaise. Patient was evaluated for any possible conditions which could be contributing to this. Patients electrolytes, thyroid function, blood cultures, cortisol and blood cell distribution were all monitored. Patient did nothave any abnormalities in the aforementioned areas. Patient additionally was treated for neck stiffness with valium which worked well. Patient was infused with normal saline, and after 3 liters patients blood pressure became less labile and she was able to maintain a steady blood pressure level. Patient then began to have less of the symptoms she was having previously. General Appearance Alert, Oriented X3, No acute distress Lungs Clear to auscultation Cardiovascular Normal S1, Normal S2, No murmurs Abdomen Soft Lab/Imaging Laboratory Tests 12/25 12/25 0450 0450 Chemistry Plasma Sodium (136 - 145 mmol/L) 143 Plasma Potassium (3.5 - 5.1 mmol/L) 3.2 Plasma Chloride (98 - 107 mmol/L) 109 CO2 (Enzymatic) (21 - 32 mmol/L) 24 BUN (7 - 18 mg/dL) 2 Creatinine (0.6 - 1.3 mg/dL) 0.3 Est GFR ( Amer) (mL/min) >60 Est GFR (Non-Af Amer) (mL/min) >60 Glucose (70 - 110 mg/dL) 88 Plasma Calcium (8.5 - 10.1 mg/dL) 7.7 Total Bilirubin (0.0 - 1.0 mg/dL) 0.3 AST (15 - 37 U/L) 11 ALT (12 - 78 U/L) 9 Alkaline Phosphatase (46 - 116 U/L) 31 Total Protein (6.4 - 8.2 g/dL) 4.9 Albumin (3.3 - 5.0 g/dL) 2.3 Cortisol AM Sample Pending Hematology WBC (4.5 - 11.5 K/uL) 3.4 RBC (4.00 - 5.20 M/uL) 3.58 Hgb (12.0 - 16.0 gm/dL) 10.3 Hct (36.0 - 46.0 %) 31.7 MCV (80 - 100 fL) 89 MCH (26 - 34 pg) 29 RDW (11.6 - 14.8 %) 13.4 Neut % (Auto) (50 - 75 %) 44.6 Lymph % (Auto) (25 - 40 %) 43.6 [place] % (Auto) (3 - 14 %) 9.0 Eos % (Auto) (0 - 4 %) 2.2 Baso % (Auto) (0 - 2 %) 0.6 Plt Count, EDTA (150 - 400 K/uL) 144 PUBS MCHC (31 - 37 g/dL) 33 Discharge Instructions/Meds -increase your fluid intake - take medications as prescribed - follow up with your pmd as needed
--- NOTE | 2016-12-25 16:03 | Discharge Summary ---
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 [facility] ER evaluation was consistent with cystitis in setting of chronic suprapubic catheter, hypotension. Secondary to the above, the patient was admitted by Hugo Sharma M.D. for further evaluation and treatment. The history of present illness began 1-2 days prior to admission when the patient had episodes of mild nausea without vomiting, generalized feeling of weakness, episodes of diaphoresis, these were unassociated with fever or chills. Secondary to the above the patient presented to [facility] emergency department due to suspected UTI. [facility] ER evaluation showed the patient to have normal vital signs other than development of hypotension in the emergency department. She was afebrile. WBC was within normal limits. Procalcitonin was within normal limits. Her SIRS/QSOFA were unremarkable. Lactic acid was elevated but repeat was within normal limits. Urine sediment was abnormal however this occurred in the setting of chronic suprapubic catheter. Secondary to her hypotension of unknown etiology the patient was admitted for further evaluation and treatment. Hospital Course Patient was admitted for hypotension and general malaise. Patient was evaluated for any possible conditions which could be contributing to this. Patients electrolytes, thyroid function, blood cultures, cortisol and blood cell distribution were all monitored. Patient did nothave any abnormalities in the aforementioned areas. Patient additionally was treated for neck stiffness with valium which worked well. Patient was infused with normal saline, and after 3 liters patients blood pressure became less labile and she was able to maintain a steady blood pressure level. Patient then began to have less of the symptoms she was having previously. General Appearance Alert, Oriented X3, No acute distress Lungs Clear to auscultation Cardiovascular Normal S1, Normal S2, No murmurs Abdomen Soft Lab/Imaging Laboratory Tests 12/25 12/25 0450 0450 Chemistry Plasma Sodium (136 - 145 mmol/L) 143 Plasma Potassium (3.5 - 5.1 mmol/L) 3.2 Plasma Chloride (98 - 107 mmol/L) 109 CO2 (Enzymatic) (21 - 32 mmol/L) 24 BUN (7 - 18 mg/dL) 2 Creatinine (0.6 - 1.3 mg/dL) 0.3 Est GFR ( Amer) (mL/min) >60 Est GFR (Non-Af Amer) (mL/min) >60 Glucose (70 - 110 mg/dL) 88 Plasma Calcium (8.5 - 10.1 mg/dL) 7.7 Total Bilirubin (0.0 - 1.0 mg/dL) 0.3 AST (15 - 37 U/L) 11 ALT (12 - 78 U/L) 9 Alkaline Phosphatase (46 - 116 U/L) 31 Total Protein (6.4 - 8.2 g/dL) 4.9 Albumin (3.3 - 5.0 g/dL) 2.3 Cortisol AM Sample Pending Hematology WBC (4.5 - 11.5 K/uL) 3.4 RBC (4.00 - 5.20 M/uL) 3.58 Hgb (12.0 - 16.0 gm/dL) 10.3 Hct (36.0 - 46.0 %) 31.7 MCV (80 - 100 fL) 89 MCH (26 - 34 pg) 29 RDW (11.6 - 14.8 %) 13.4 Neut % (Auto) (50 - 75 %) 44.6 Lymph % (Auto) (25 - 40 %) 43.6 Mcdowell % (Auto) (3 - 14 %) 9.0 Eos % (Auto) (0 - 4 %) 2.2 Baso % (Auto) (0 - 2 %) 0.6 Plt Count, EDTA (150 - 400 K/uL) 144 PUBS MCHC (31 - 37 g/dL) 33 Discharge Instructions/Meds -increase your fluid intake - take medications as prescribed - follow up with your pmd as needed
== END 2016-12-25 18:17 | disposition home or self-care (01) ==
LOC: ED SRH 22:20 → CC SRH 12-24 02:42 → TRANS SRH 12-24 02:42 → CC SRH 12-24 04:00
PROVIDERS: ADMIT Internal Medicine
DX: E86.0 Dehydration (principal); I95.9 Hypotension, unspecified; G90.3 Multi-system degeneration of the autonomic nervous system; I69.865 Other paralytic syndrome following other cerebrovascular disease, bilateral; G82.50 Quadriplegia, unspecified; E83.42 Hypomagnesemia; R73.9 Hyperglycemia, unspecified
CPT/HCPCS: 29244; 29251; 29253; 29259; 29262; 29264; 83742; 85241; 90004; 90065; 90074; 90100; 90148; 90469; 90616; 91286; 91295; 91400; 91556; 91672; 92031; 92132; 92235; 92610; 92720; 92760; 92761; 92762; 92763; 92764; 92765; 92766; 92767; 93004; 93010; 93140; 95059; 95061

== ENCOUNTER 2017-03-05 08:09 | Emergency (ER) | payer OTHER ==
[~2017-03-05 08:09] MED LIST: ATIVAN1 MG PO; BACLOFEN20 MG PO; CITALOPRAM HYDR20 MG PO; GABAPENTIN600 MG PO; VALIUM2 MG PO; VITAMIN D-31000 UNIT PO
--- NOTE | 2017-03-05 10:26 | DIAGNOSTIC IMAGING REPORT ---
PROCEDURE: XR CHEST 1 VIEW INDICATION: SUBJECTIVE FEVER AND CHILLS TECHNIQUE: Portable AP view 10:18 a.m. COMPARISON: Chest 12/24/2016 FINDINGS: Lungs are clear. Heart and mediastinum are normal. Thorax is normal. IMPRESSION: 1. Negative chest.
--- NOTE | 2017-03-05 12:41 | ED CLINICAL REPORT ---
Clinical Report - Physicians/Mid Levels [facility] [address] [place] [address] 03/05/2017 8:10 Patient: ANGELINE SCHUMACHER Time Seen: 0900. Arrived- By private vehicle. 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 HISTORY OF PRESENT ILLNESS Chief Complaint: SORE THROAT, FEVER, CHILLS and MUSCLE ACHES. This started past 2 days and is still present (unchanged). It was gradual in onset and has been constant but is not gone now. The illness is described as moderate. The patient has had a cough (dry). She has had a sore throat, fever, chills and muscle aches. 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 States she gets really sick when she does get sick.). Additional history - No known contact with a sick individual. No recent travel. ( loss of voice). Similar symptoms previously: (a few). Recent medical care: Not recently seen/assessed. REVIEW OF SYSTEMS No headache or skin rash. decub ulcer to the left hip. getting better. goes to wound care clinic for it. All systems otherwise negative, except as recorded above. PAST HISTORY See nurses notes. Medications: Phenazopyridine HCl Oral. Omeprazole Oral. Lidocaine External. Albuterol Sulfate Inhalation. Tylenol Oral. Baclofen External. Citalopram Hydrobromide Oral. LORazepam Oral. Neurontin Oral. Allergies: Amoxicillin. Bactrim. Levaquin. Oxycodone. Phenergan. SOCIAL HISTORY Never smoker. Not exposed to second-hand smoke at home. No alcohol use or drug use. No recent travel. Is a local resident. ADDITIONAL NOTES The nursing notes have been reviewed. PHYSICAL EXAM Vital Signs: 03/05/2017 08:13 BP: 117/77. HR: 92. RR: 20. O2 saturation: 96%. Temp: 98 F. Pain level now: 10/10. Blood pressure normal. Oxygen saturation normal. Appearance: Alert. No acute distress. Eyes: Pupils equal, round and reactive to light. Eyes normal inspection. ENT: Ears normal. Nose normal. Pharynx normal. Uvula midline. Neck: Normal inspection. Neck supple. CVS: Normal heart rate and rhythm. Heart sounds normal. Pulses normal. Respiratory: No respiratory distress. Breath sounds normal. Abdomen: Soft and nontender. No organomegaly. Back: Normal inspection. Skin: Skin warm and dry. Normal skin color. No rash. Normal skin turgor. Extremities: Extremities exhibit normal ROM. No lower extremity edema. (left buttock with decub ulcer. wound is c/d/i. no erythema.). Neuro: Oriented X 3. (patient is unable to move from the neck down.). LABS, X-RAYS, AND EKG Laboratory Tests: UA-Culture if indicated: (YUMIKO: 03/05/2017 09:45) ( [employer] [facility] 03/05/2017 12:06) IP Test Result Flag Units (Reference) URINE COLOR YELLOW URINE APPEARANCE CLEAR URINE GLUCOSE NEGATIVE (NEGATIVE) URINE BILIRUBIN NEGATIVE (NEGATIVE) URINE KETONE 3+ (NEGATIVE) URINE SPECIFIC GRAVITY 1.025 (1.010-1.030) URINE PH 5.5 (5.0-8.0) URINE PROTEIN NEGATIVE (NEGATIVE) URINE UROBILINOGEN 0.2 EU/dL (0.2-1.0) URINE NITRITE POSITIVE (NEGATIVE) URINE BLOOD 3+ (NEGATIVE) URINE LEUK ESTERASE TRACE (NEGATIVE) CBC w Diff: (YUMIKO: 03/05/2017 09:55) ( [facility] [facility] 03/05/2017 10:22) Final results Test Result Flag Units (Reference) WHITE BLOOD COUNT 8.4 K/uL (4.5-11.5) RED BLOOD COUNT 3.87 L M/uL (4.00-5.20) HEMOGLOBIN 11.1 L gm/dL (12.0-16.0) HEMATOCRIT 33.8 L % (36.0-46.0) MEAN CELL VOLUME 87 fL (80-100) MEAN CORPUSCULAR HGB 29 pg (26-34) MEAN CORPUSCULAR HGB CONC 33 g/dL (31-37) RED CELL DISTRIBUTION WIDTH 12.9 % (11.6-14.8) PLATELET COUNT 272 K/uL (150-400) NEUTROPHIL % 75.8 H % (50-75) LYMPH % 18.3 L % (25-40) MONO % 5.3 % (3-14) EOSINOPHIL % 0.2 % (0-4) BASOPHIL % 0.4 % (0-2) Lactate, Serum: (YUMIKO: 03/05/2017 09:55) ( [facility] 03/05/2017 10:36) Final results Test Result Flag Units (Reference) LACTIC ACID 1.3 mmol/L (0.4-2.0) CMP: (YUMIKO: 03/05/2017 09:55) ( [facility] 03/05/2017 10:24) Final results Test Result Flag Units (Reference) GLUCOSE 88 mg/dL (70-110) BUN 5 L mg/dL (7-18) CREATININE 0.2 L mg/dL (0.6-1.3) Estimated GFR >60 mL/min Estimated GFR- >60 mL/min Note: Persistent reduction over 3 months in eGFR<60 mL/min/1.73 m2 defines CKD. Patients with eGFR values>=60 mL/min/1.73 m2 may also have CKD if evidence ofpersistent proteinuria. Additional information may be foundat www.kidney.org. SODIUM 133 L mmol/L (136-145) POTASSIUM 3.7 mmol/L (3.5-5.1) CHLORIDE 92 L mmol/L (98-107) CARBON DIOXIDE 25 mmol/L (21-32) CALCIUM 8.6 mg/dL (8.5-10.1) TOTAL PROTEIN 7.1 g/dL (6.4-8.2) ALBUMIN 3.2 L g/dL (3.3-5.0) BILIRUBIN, TOTAL 0.5 mg/dL (0.0-1.0) ALKALINE PHOSPHATASE 50 U/L (46-116) AST (SGOT) 13 L U/L (15-37) ALT (SGPT) 10 L U/L (12-78) Culture, Strep Screen: (YUMIKO: 03/05/2017 09:05) ( [facility] [facility] 03/05/2017 09:38) Final results Test Result Flag Units (Reference) RAPID STREP SCREEN - THROAT DATE: 03/05/17 NEGATIVE SCREEN: RAPID STREP SCREEN NEGATIVE; CONFIRMATION TO FOLLOW Rapid Influenza Screen: (YUMIKO: 03/05/2017 09:30) ( MsgRcvd 03/05/2017 10:16) Final results SPECIMEN DESCRIPTION: MUCUS Test Result Flag Units (Reference) RAPID INFLUENZA SCREEN DATE: 03/05/17 INFLUENZA A: NEGATIVE SCREEN FOR INFLUENZA A INFLUENZA B: NEGATIVE SCREEN FOR INFLUENZA B . PROGRESS AND PROCEDURES Course of Care: The patient is pleasant 41 yo female with quadrapalegia presenting for evaluation of URI symptoms. Patient with complex past medical history and would be concerned for other possible infectious etiology including pneumonia or UTI. Patient with chronic carranza. No other signs of infection. Decub ulcer does not appear to be infected. Patient and caregiver are agreeable to the work up. patient with negative work up. chest xr clear. no signs of strep. UA negative. the rest of the patient's work up was noted to be unremarkable. patient with improved symptoms while here. discussed with patietn work up, diagnosis, home care, return precautions, and follow up. all questions answered. patient expressed understanding of these instructions and was agreeable to them. Patient stable outpatient candidate. Patient transfered via ambulance. repeat exam reassuring. patient non-toxic and in no acute distress. Disposition: Discharged. Condition: good. CLINICAL IMPRESSION 03/05/2017 10:55 BP: 104/57. HR: 102. RR: 20. O2 saturation: 97%. 03/05/2017 10:54 Temp: 99.6 F. Mild dehydration Acute viral syndrome Acute urinary tract infection. INSTRUCTIONS Warnings: GENERAL WARNINGS: Return or contact your physician immediately if your condition worsens or changes unexpectedly, if not improving as expected, or if other problems arise. Specifically return if pain, vomiting, bleeding, breathing difficulty or fever. Your Current Medications: CONTINUE TAKING THE FOLLOWING MEDICATIONS: Albuterol Sulfate Inhalation. Baclofen External. Citalopram Hydrobromide Oral. Lidocaine External. LORazepam Oral. Neurontin Oral. Omeprazole Oral. Phenazopyridine HCl Oral. Tylenol Oral. Prescription Medications: Macrobid 100 mg: take 1 capsule orally every 12 hours for 5 days. No refill. Substitution is permissible. (disp 10 caps) Lidocaine 2% oral topical solution. Gargle and spit every 4 hours as needed for sore throat. Disp 1 bottle. No refills. Follow-up: Return to the emergency department as needed. Follow up with your doctor in three days. Reason for referral: recheck today's concerns. Summary of care provided to patient via paper. Screening today revealed the patient's blood pressure to be in the normal range. The patient should follow up with a primary care provider for blood pressure management. Understanding of the discharge instructions verbalized by patient. Discharge instructions reviewed (certified social workers in health care). (Electronically signed by Maxx Mendieta Dr. 03/05/2017 22:56)
--- NOTE | 2017-03-05 12:41 | ED ORDER SUMMARY ---
..... Patient: ANGELINE SCHUMACHER OrderSheet [facility] VisitID: [id number] [place] [address] 41y, F Registration Date/Time: 03/05/2017 ORDER SHEET Weight: 48.0 kg (stated) Allergies: Amoxicillin, Bactrim, Levaquin, Phenergan, Oxycodone GENERAL ORDERS: Culture, Throat Urgent (08:54 03/05/2017 JSimbeck R.N. per protocol) (Ack 8:57 IJurca ER Tech1) (Cancelled: Duplicate Order9:18 Sindhu Naidu) UA-Culture if indicated Urgent (08:54 03/05/2017 JSimbeck R.N. per protocol) (Ack 8:57 IJurca ER Tech1) (9:22 JSimbeck R.N.) Rapid Influenza Screen (Nasal Pharyngeal) (mucus) Urgent (09:04 03/05/2017 Sindhu Naidu) (Ack 9:05 IJurca ER Tech1) (9:50 JSimbeck R.N.) Chest 1V Urgent (09:16 03/05/2017 Sindhu Naidu) (Ack 9:19 IJurcanushka ER Tech1) (10:42 JSimbeck R.N.) CBC w Diff Urgent (09:17 03/05/2017 Sindhu Naidu) (Ack 9:19 IJurca ER Tech1) (10:42 JSimbeck R.N.) CMP Urgent (09:17 03/05/2017 Sindhu Naidu) (Ack 9:19 IJurca ER Tech1) (10:42 JSimbeck R.N.) UA-Culture if indicated Urgent (09:17 03/05/2017 Sindhu Naidu) (Cancelled: Duplicate Order9:17 Sindhu Naidu) Urine Urgent (09:03/05/2017 Sindhu Naidu) (Ack 9:19 LOREurcanushka ER Tech1) (10:42 JSimbeck R.N.) Lactate, Serum Urgent (09:17 03/05/2017 Sindhu Naidu) (Ack 9:19 Kofi ER Tech1) (10:42 JSimbeck R.N.) Pulse oximeter (09:17 03/05/2017 Sindhu Naidu) (Ack 9:19 IJurca ER Tech1) (9:25 Codi R.N.) Culture, Strep Screen Urgent (09:17 03/05/2017 Sindhu Naidu) (Ack 9:19 IJurca ER Tech1) (9:25 Codi R.N.) UA-Culture if indicated Urgent (11:57 03/05/2017 Codi R.N. verbal order read back to Sindhu Naidu) (Ack 11:59 IJurca ER Tech1) (12:40 Codi R.N.) MEDICATION ORDERS: DuoNeb Neb Tx 1 unit dose (NOW) (:03/05/2017 Sindhu Naidu) (9:29 DBourey) Tylenol PO 650 mg (NOW) (11:06 03/05/2017 Sindhu Naidu) (11:34 Codi R.N.) Nitrofurantoin PO 100 mg (NOW) (12:16 03/05/2017 Sindhu Naidu) (12:52 Codi R.N.) GI Cocktail WHITE PO 30 mL (NOW) (12:16 03/05/2017 Sindhu Naidu) (12:53 Coid R.N.) IV FLUIDS: IV NS : initial bolus 1000 mL (1000 mL/hr), then none - for X1 (NOW) (09:17 03/05/2017 Sindhu Naidu) (9:52 Codi R.N.) Morphine IV 4 mg (HIGH ALERT MEDICATION, NOW) (09:37 03/05/2017 Sindhu Naidu) (9:51 Codi R.N.) IV NS : initial bolus 1000 mL (1000 mL/hr), then none - for X1 (NOW) (11:25 03/05/2017 Sindhu Naidu) (11:34 Codi R.N.) ORDER SHEET NOTES: [Electronically signed by Keith Gross R.N. (14:30 03/05/2017)] [Electronically signed by Maxx Mendieta Dr. (22:56 03/05/2017)] [Electronically locked/signed by Keith Gross R.N. (14:30 03/05/2017)]
--- NOTE | 2017-03-05 12:41 | ED CLINICAL REPORT ---
Clinical Report - Physicians/Mid Levels [facility] [address] [place] [address] 03/05/2017 8:10 Patient: ANGELINE SCHUMACHER Time Seen: 0900. Arrived- By private vehicle. 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 HISTORY OF PRESENT ILLNESS Chief Complaint: SORE THROAT, FEVER, CHILLS and MUSCLE ACHES. This started past 2 days and is still present (unchanged). It was gradual in onset and has been constant but is not gone now. The illness is described as moderate. The patient has had a cough (dry). She has had a sore throat, fever, chills and muscle aches. 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 States she gets really sick when she does get sick.). Additional history - No known contact with a sick individual. No recent travel. ( loss of voice). Similar symptoms previously: (a few). Recent medical care: Not recently seen/assessed. REVIEW OF SYSTEMS No headache or skin rash. decub ulcer to the left hip. getting better. goes to wound care clinic for it. All systems otherwise negative, except as recorded above. PAST HISTORY See nurses notes. Medications: Phenazopyridine HCl Oral. Omeprazole Oral. Lidocaine External. Albuterol Sulfate Inhalation. Tylenol Oral. Baclofen External. Citalopram Hydrobromide Oral. LORazepam Oral. Neurontin Oral. Allergies: Amoxicillin. Bactrim. Levaquin. Oxycodone. Phenergan. SOCIAL HISTORY Never smoker. Not exposed to second-hand smoke at home. No alcohol use or drug use. No recent travel. Is a local resident. ADDITIONAL NOTES The nursing notes have been reviewed. PHYSICAL EXAM Vital Signs: 03/05/2017 08:13 BP: 117/77. HR: 92. RR: 20. O2 saturation: 96%. Temp: 98 F. Pain level now: 10/10. Blood pressure normal. Oxygen saturation normal. Appearance: Alert. No acute distress. Eyes: Pupils equal, round and reactive to light. Eyes normal inspection. ENT: Ears normal. Nose normal. Pharynx normal. Uvula midline. Neck: Normal inspection. Neck supple. CVS: Normal heart rate and rhythm. Heart sounds normal. Pulses normal. Respiratory: No respiratory distress. Breath sounds normal. Abdomen: Soft and nontender. No organomegaly. Back: Normal inspection. Skin: Skin warm and dry. Normal skin color. No rash. Normal skin turgor. Extremities: Extremities exhibit normal ROM. No lower extremity edema. (left buttock with decub ulcer. wound is c/d/i. no erythema.). Neuro: Oriented X 3. (patient is unable to move from the neck down.). LABS, X-RAYS, AND EKG Laboratory Tests: UA-Culture if indicated: (YUMIKO: 03/05/2017 09:45) ( [facility] 03/05/2017 12:06) IP Test Result Flag Units (Reference) URINE COLOR YELLOW URINE APPEARANCE CLEAR URINE GLUCOSE NEGATIVE (NEGATIVE) URINE BILIRUBIN NEGATIVE (NEGATIVE) URINE KETONE 3+ (NEGATIVE) URINE SPECIFIC GRAVITY 1.025 (1.010-1.030) URINE PH 5.5 (5.0-8.0) URINE PROTEIN NEGATIVE (NEGATIVE) URINE UROBILINOGEN 0.2 EU/dL (0.2-1.0) URINE NITRITE POSITIVE (NEGATIVE) URINE BLOOD 3+ (NEGATIVE) URINE LEUK ESTERASE TRACE (NEGATIVE) CBC w Diff: (YUMIKO: 03/05/2017 09:55) ( [facility] 03/05/2017 10:22) Final results Test Result Flag Units (Reference) WHITE BLOOD COUNT 8.4 K/uL (4.5-11.5) RED BLOOD COUNT 3.87 L M/uL (4.00-5.20) HEMOGLOBIN 11.1 L gm/dL (12.0-16.0) HEMATOCRIT 33.8 L % (36.0-46.0) MEAN CELL VOLUME 87 fL (80-100) MEAN CORPUSCULAR HGB 29 pg (26-34) MEAN CORPUSCULAR HGB CONC 33 g/dL (31-37) RED CELL DISTRIBUTION WIDTH 12.9 % (11.6-14.8) PLATELET COUNT 272 K/uL (150-400) NEUTROPHIL % 75.8 H % (50-75) LYMPH % 18.3 L % (25-40) MONO % 5.3 % (3-14) EOSINOPHIL % 0.2 % (0-4) BASOPHIL % 0.4 % (0-2) Lactate, Serum: (YUMIKO: 03/05/2017 09:55) ( [facility] 03/05/2017 10:36) Final results Test Result Flag Units (Reference) LACTIC ACID 1.3 mmol/L (0.4-2.0) CMP: (YUMIKO: 03/05/2017 09:55) ( [facility] 03/05/2017 10:24) Final results Test Result Flag Units (Reference) GLUCOSE 88 mg/dL (70-110) BUN 5 L mg/dL (7-18) CREATININE 0.2 L mg/dL (0.6-1.3) Estimated GFR >60 mL/min Estimated GFR- >60 mL/min Note: Persistent reduction over 3 months in eGFR<60 mL/min/1.73 m2 defines CKD. Patients with eGFR values>=60 mL/min/1.73 m2 may also have CKD if evidence ofpersistent proteinuria. Additional information may be foundat www.kidney.org. SODIUM 133 L mmol/L (136-145) POTASSIUM 3.7 mmol/L (3.5-5.1) CHLORIDE 92 L mmol/L (98-107) CARBON DIOXIDE 25 mmol/L (21-32) CALCIUM 8.6 mg/dL (8.5-10.1) TOTAL PROTEIN 7.1 g/dL (6.4-8.2) ALBUMIN 3.2 L g/dL (3.3-5.0) BILIRUBIN, TOTAL 0.5 mg/dL (0.0-1.0) ALKALINE PHOSPHATASE 50 U/L (46-116) AST (SGOT) 13 L U/L (15-37) ALT (SGPT) 10 L U/L (12-78) Culture, Strep Screen: (YUMIKO: 03/05/2017 09:05) ( [facility] 03/05/2017 09:38) Final results Test Result Flag Units (Reference) RAPID STREP SCREEN - THROAT DATE: 03/05/17 NEGATIVE SCREEN: RAPID STREP SCREEN NEGATIVE; CONFIRMATION TO FOLLOW Rapid Influenza Screen: (YUMIKO: 03/05/2017 09:30) ( MsgRcvd 03/05/2017 10:16) Final results SPECIMEN DESCRIPTION: MUCUS Test Result Flag Units (Reference) RAPID INFLUENZA SCREEN DATE: 03/05/17 INFLUENZA A: NEGATIVE SCREEN FOR INFLUENZA A INFLUENZA B: NEGATIVE SCREEN FOR INFLUENZA B . PROGRESS AND PROCEDURES Course of Care: The patient is pleasant 41 yo female with quadrapalegia presenting for evaluation of URI symptoms. Patient with complex past medical history and would be concerned for other possible infectious etiology including pneumonia or UTI. Patient with chronic carranza. No other signs of infection. Decub ulcer does not appear to be infected. Patient and caregiver are agreeable to the work up. patient with negative work up. chest xr clear. no signs of strep. UA negative. the rest of the patient's work up was noted to be unremarkable. patient with improved symptoms while here. discussed with patietn work up, diagnosis, home care, return precautions, and follow up. all questions answered. patient expressed understanding of these instructions and was agreeable to them. Patient stable outpatient candidate. Patient transfered via ambulance. repeat exam reassuring. patient non-toxic and in no acute distress. Disposition: Discharged. Condition: good. CLINICAL IMPRESSION 03/05/2017 10:55 BP: 104/57. HR: 102. RR: 20. O2 saturation: 97%. 03/05/2017 10:54 Temp: 99.6 F. Mild dehydration Acute viral syndrome Acute urinary tract infection. INSTRUCTIONS Warnings: GENERAL WARNINGS: Return or contact your physician immediately if your condition worsens or changes unexpectedly, if not improving as expected, or if other problems arise. Specifically return if pain, vomiting, bleeding, breathing difficulty or fever. Your Current Medications: CONTINUE TAKING THE FOLLOWING MEDICATIONS: Albuterol Sulfate Inhalation. Baclofen External. Citalopram Hydrobromide Oral. Lidocaine External. LORazepam Oral. Neurontin Oral. Omeprazole Oral. Phenazopyridine HCl Oral. Tylenol Oral. Prescription Medications: Macrobid 100 mg: take 1 capsule orally every 12 hours for 5 days. No refill. Substitution is permissible. (disp 10 caps) Lidocaine 2% oral topical solution. Gargle and spit every 4 hours as needed for sore throat. Disp 1 bottle. No refills. Follow-up: Return to the emergency department as needed. Follow up with your doctor in three days. Reason for referral: recheck today's concerns. Summary of care provided to patient via paper. Screening today revealed the patient's blood pressure to be in the normal range. The patient should follow up with a primary care provider for blood pressure management. Understanding of the discharge instructions verbalized by patient. Discharge instructions reviewed (healthcare representative). (Electronically signed by Maxx Mendieta Dr. 03/05/2017 22:56)
--- NOTE | 2017-03-05 12:41 | ED ORDER SUMMARY ---
..... Patient: ANGELINE SCHUMACHER OrderSheet [facility] VisitID: [id number] [place] [address] 41y, F Registration Date/Time: 03/05/2017 ORDER SHEET Weight: 48.0 kg (stated) Allergies: Amoxicillin, Bactrim, Levaquin, Phenergan, Oxycodone GENERAL ORDERS: Culture, Throat Urgent (08:54 03/05/2017 JSimbeck R.N. per protocol) (Ack 8:57 IJurca ER Tech1) (Cancelled: Duplicate Order9:18 Sindhu Naidu) UA-Culture if indicated Urgent (08:54 03/05/2017 JSimbeck R.N. per protocol) (Ack 8:57 IJurca ER Tech1) (9:22 JSimbeck R.N.) Rapid Influenza Screen (Nasal Pharyngeal) (mucus) Urgent (09:04 03/05/2017 Sindhu Naidu) (Ack 9:05 IJurca ER Tech1) (9:50 JSimbeck R.N.) Chest 1V Urgent (09:16 03/05/2017 Sindhu Naidu) (Ack 9:19 IJurcanushka ER Tech1) (10:42 JSimbeck R.N.) CBC w Diff Urgent (09:17 03/05/2017 Sinhdu Naidu) (Ack 9:19 IJurca ER Tech1) (10:42 JSimbeck R.N.) CMP Urgent (09:17 03/05/2017 Sindhu Naidu) (Ack 9:19 IJurca ER Tech1) (10:42 JSimbeck R.N.) UA-Culture if indicated Urgent (09:17 03/05/2017 Sindhu Naidu) (Cancelled: Duplicate Order9:17 Sindhu Naidu) Urine Urgent (09:03/05/2017 Sindhu Naidu) (Ack 9:19 LOREurcanushka ER Tech1) (10:42 JSimbeck R.N.) Lactate, Serum Urgent (09:17 03/05/2017 Sindhu Naidu) (Ack 9:19 Kofi ER Tech1) (10:42 JSimbeck R.N.) Pulse oximeter (09:17 03/05/2017 Sindhu Naidu) (Ack 9:19 IJurca ER Tech1) (9:25 Codi R.N.) Culture, Strep Screen Urgent (09:17 03/05/2017 Sindhu Naidu) (Ack 9:19 IJurca ER Tech1) (9:25 Codi R.N.) UA-Culture if indicated Urgent (11:57 03/05/2017 Codi R.N. verbal order read back to Sindhu Naidu) (Ack 11:59 IJurca ER Tech1) (12:40 Codi R.N.) MEDICATION ORDERS: DuoNeb Neb Tx 1 unit dose (NOW) (:03/05/2017 Sindhu Naidu) (9:29 DBourey) Tylenol PO 650 mg (NOW) (11:06 03/05/2017 Sindhu Naidu) (11:34 Codi R.N.) Nitrofurantoin PO 100 mg (NOW) (12:16 03/05/2017 Sindhu Naidu) (12:52 Codi R.N.) GI Cocktail WHITE PO 30 mL (NOW) (12:16 03/05/2017 Sindhu Naidu) (12:53 Codi R.N.) IV FLUIDS: IV NS : initial bolus 1000 mL (1000 mL/hr), then none - for X1 (NOW) (09:17 03/05/2017 Sindhu Naidu) (9:52 Codi R.N.) Morphine IV 4 mg (HIGH ALERT MEDICATION, NOW) (09:37 03/05/2017 Sindhu Naidu) (9:51 Codi R.N.) IV NS : initial bolus 1000 mL (1000 mL/hr), then none - for X1 (NOW) (11:25 03/05/2017 Sindhu Naidu) (11:34 Codi R.N.) ORDER SHEET NOTES: [Electronically signed by Keith Gross R.N. (14:30 03/05/2017)] [Electronically signed by Maxx Mendieta Dr. (22:56 03/05/2017)] [Electronically locked/signed by Keith Gross R.N. (14:30 03/05/2017)]
--- NOTE | 2017-03-05 12:41 | ED NURSING NOTES ---
Clinical Report - Nurses [facility] [place] [address] 03/05/2017 8:10 Patient: ANGELINE SCHUMACHER TRIAGE Triage time 08:10. Acuity: LEVEL 3. Chief Complaint: FEVER, MUSCLE ACHES and SORE THROAT (muscle stiffness, hoarse voice x3 days). SEPSIS SCREEN: Sepsis Screen. Negative (no infection suspected/documented). INDRA COMA SCORE: [place] Coma Scale: 15- eyes open spontaneously (4); best verbal response- oriented x 4 (5); best motor response- obeys commands (6). --08:25 Keith Gross R.N. 08:13 03/05/17. BP: 117/77. HR: 92. RR: 20. O2 saturation: 96% on room air. Temp: 98 F (oral). Pain level now: 07/28. --08:25 Keith Gross R.N. Weight: 48 kg stated. Height/Length: 69 inches Per Patient. BMI: 15.6. --08:17 Keith Gross R.N. Medications Baclofen External. Citalopram Hydrobromide Oral. LORazepam Oral. Neurontin Oral. --08:19 Keith Gross R.N. Tylenol Oral. --08:19 Keith Gross R.N. Albuterol Sulfate Inhalation. --08:20 Keith Gross R.N. Lidocaine External. --08:20 Keith Gross R.N. Omeprazole Oral. --08:20 Keith Gross R.N. Phenazopyridine HCl Oral. --08:20 Keith Gross R.N. Allergies Amoxicillin. Bactrim. Levaquin. Phenergan. --08:16 Keith Gross R.N. Oxycodone. --08:16 Keith Gross R.N. History Arrived by EMS. Historian: EMS and patient. SOCIAL HX: Never smoker. No alcohol use or drug use. ABUSE ASSESSMENT: No report of abuse. --08:25 Keith Gross R.N. PROBLEMS: Quadraplegia. Hypotension. Gallbladder Disease. Constipation. Suprapubic catheter. UTI - Urinary Tract Infection. Neck Pain. Prior Injury, Same Area. Lower Extremity Pain. Contusion. Paralysis. Chronic uti. Gallstone(s). Arteriovenous Malformation. --08:22 Keith Gross R.N. ADDITIONAL SURGERIES: Embolizations. Endoscopy. Supra pubic catheter. --08:22 Keith Gross R.N. Assessment GENERAL / NEURO / PSYCH: Alert. Oriented X 4. Appears in pain. Patient appears calm and cooperative. RESPIRATORY: Respirations not labored. Chest nontender. Breath sounds within normal limits. CVS: Capillary refill less than 2 seconds. GI / : Abdomen soft and nontender. SKIN: Mucous membranes are pink. Skin is warm and dry. --08:25 Keith Gross R.N. Interventions ID band on patient. To treatment room. --08:25 Keith Gross R.N. NURSING PROGRESS NOTES 09:29 03/05/2017 Duoneb (Ipratropium-Albuterol) Neb TX 1 unit dose given. Given by the respiratory therapist. --09:29 Bran Bentley 09:35 03/05/2017 Site #1 started via IV in the right wrist with an 20g angiocath, with aseptic technique and good blood return; one attempt. Saline lock flushed with 10 mL saline. --09:51 Keith Gross R.N. 09:45 03/05/2017 Morphine IVP 4 mg given over 1 minute(s) via site #1. Allergies verified, confirmed 5 rights and sedative warning given to the patient. IV patency established. IV site checked: no pain, redness, or swelling. IV flushed thoroughly pre- and post-medication administration. IVP given by RN. --09:51 Keith Gross R.N. 09:45 03/05/2017 Started bag #1 1000 mL IV Fluids IV NS (Saline); at 999 mL/hr over 1 hour(s) via site #1 via IV pump. Allergies verified and confirmed 5 rights. IV patency established. IV site checked: no pain, redness, or swelling. IV flushed thoroughly pre- and post-medication administration. --09:52 Keith Gross R.N. Oxygen administered by nasal cannula at 2 liters (Room air spo2 is 92%.). --10:48 Keith Gross R.N. 10:54 03/05/17. Temp: 99.6 F (temporal). --10:54 Keith Gross R.N. 10:55 03/05/17. BP: 104/57. HR: 102. RR: 20. O2 saturation: 97% on nasal cannula at 2 liters/minute. --10:55 Keith Gross R.N. 10:15 03/05/2017 Morphine IVP Response: pain is improving. Symptoms have improved. --10:58 Keith Gross R.N. 10:50 03/05/2017 IV Fluids IV NS via IV site #1 Rate Changed: bag #1 decreased to 50 mL/hr via IV pump. IV patency established. IV site checked: no pain, redness, or swelling. IV flushed thoroughly. Confirmed 5 Rights (1000ml infused, decreased to TKO). --10:59 Keith Gross R.N. 11:34 03/05/2017 Started bag #1 1000 mL IV Fluids IV NS (Saline); at 999 mL/hr over 1 hour(s) via site #1 via IV pump. Allergies verified and confirmed 5 rights. IV patency established. IV site checked: no pain, redness, or swelling. IV flushed thoroughly pre- and post-medication administration. --11:34 Keith Gross R.N. 11:34 03/05/2017 Tylenol (Acetaminophen) PO Tablets 650 mg given. Allergies verified and confirmed 5 rights. --11:34 Keith Gross R.N. 09:00 03/05/17. HR: 100. RR: 16. O2 saturation: 96% on room air. Pain level now: 07/28. --12:55 Keith Gross R.N. 11:15 03/05/17. BP: 105/60. HR: 98. RR: 20. O2 saturation: 97% on room air. --12:58 Keith Gross R.N. 11:45 03/05/17. BP: 108/58. HR: 100. RR: 20. O2 saturation: 97% on nasal cannula at 2 liters/minute. Pain level now: 02/25. --13:00 Keith Gross R.N. 12:30 03/05/17. BP: 97/54. HR: 70. RR: 16. O2 saturation: 100% on nasal cannula at 2 liters/minute. Pain level now: 02/25. --13:01 Keith Gross R.N. Oxygen discontinued due to patient improvement (stopped oxygen). --13:03 Keith Gross R.N. 11:30 03/05/2017 IV Fluids IV NS Discontinued: bag #1 completed. Total amount infused: 1000 mL. IV patency established. IV site checked: no pain, redness, or swelling. IV flushed thoroughly. --14:30 Keith Gross R.N. 12:45 03/05/2017 IV Fluids IV NS Discontinued: bag #2 completed. Total amount infused: 1000 mL. IV patency established. IV site checked: no pain, redness, or swelling. IV flushed thoroughly. --14:28 Keith Gross R.N. 12:52 03/05/2017 Nitrofurantoin PO Capsules 100 mg given. Allergies verified and confirmed 5 rights. --12:52 Keith Gross R.N. 12:53 03/05/2017 GI COCKTAIL WHITE (Simethicone) PO Oral Suspension 30 mL given. Allergies verified and confirmed 5 rights. --12:53 Keith Gross R.N. 13:00 03/05/17. BP: 95/54. HR: 91. RR: 16. O2 saturation: 95% on room air. Pain level now: 01/26. --14:29 Keith Gross R.N. DISPOSITION / DISCHARGE 13:50 03/05/2017 Site #1 removed upon discharge. Bandage applied. --14:07 Keith Gross R.N. Departure time: 1355. Condition at departure: improved and stable. No learning barriers present. Discharge instructions provided and reviewed with the caregiver and patient. Reviewed warnings. Reviewed medication(s). Treatments reviewed. Patient verbalized understanding. Caregiver verbalized understanding. The patient was discharged by the physician. She was discharged home and accompanied by shotgun shell assembly machine adjuster. She left the Emergency Department via ambulance and on a stretcher. Transported via stretcher by tech. --14:08 Keith Gross R.N. 13:30 03/05/17. BP: 90/58. HR: 86. RR: 16. O2 saturation: 94% on room air. Temp: 99.4 F (tympanic). Pain level now: 12/26. --14:08 Keith Gross R.N. Locked/Released at 03/05/2017 14:30 by Keith Gross R.N.
--- NOTE | 2017-03-05 22:56 | ED MED RECONCILIATION SUMMARY ---
Patient: ANGELINE SCHUMACHER Medication Reconciliation Report [facility] VisitID: [id number] [place] [address] 41y, F Registration Date/Time: 03/05/2017 Weight: 48.0 kg Height/Length: 69 in. BMI: 15.6 ALLERGIES: Amoxicillin, Bactrim, Levaquin, Oxycodone, Phenergan The patient's Home Medications are listed below: CONTINUE TAKING THE FOLLOWING MEDICATIONS: Albuterol Sulfate Inhalation Baclofen External Citalopram Hydrobromide Oral Lidocaine External LORazepam Oral Neurontin Oral Omeprazole Oral Phenazopyridine HCl Oral Tylenol Oral The source(s) of the original Home Medication information: Not obtained. The following Medications were given to the patient in the Emergency Department: Duoneb [Neb Tx] Neb TX 1 unit dose, administered: 03/05/2017 9:29:00 AM Morphine [IVP] IVP 4 mg, administered: 03/05/2017 9:45:00 AM IV NS IV Fluids bolus 0, then 999 mL/hr, administered: 03/05/2017 9:45:00 AM IV NS IV Fluids bolus 0, then 999 mL/hr, administered: 03/05/2017 11:34:00 AM Tylenol [PO] PO 650 mg, administered: 03/05/2017 11:34:00 AM Nitrofurantoin [PO] PO 100 mg, administered: 03/05/2017 12:52:00 PM GI COCKTAIL WHITE [PO] PO 30 mL, administered: 03/05/2017 12:53:00 PM The following Medications were prescribed to the patient: Lidocaine 2% oral topical solution. Gargle and spit every 4 hours as needed for sore throat. Disp 1 bottle. No refills. -- Maxx Mendieta Dr. Macrobid 100 mg: take 1 capsule orally every 12 hours for 5 days. No refill. Substitution is permissible.(disp 10 caps) -- Maxx Mendieta Dr.
--- NOTE | 2017-03-05 22:56 | ED DISCHARGE INSTRUCTIONS ---
Patient: ANGELINE SCHUMACHER General Instructions [facility] VisitID: [id number] [place] [address] 41y, F Registration Date/Time: 03/05/2017 03/05/2017 10:55 BP: 104/57. HR: 102. RR: 20. O2 saturation: 97%. 03/05/2017 10:54 Temp: 99.6 F. Mild dehydration Acute viral syndrome Acute urinary tract infection. INSTRUCTIONS Warnings: GENERAL WARNINGS: Return or contact your physician immediately if your condition worsens or changes unexpectedly, if not improving as expected, or if other problems arise. Specifically return if pain, vomiting, bleeding, breathing difficulty or fever. Your Current Medications: CONTINUE TAKING THE FOLLOWING MEDICATIONS: Albuterol Sulfate Inhalation. Baclofen External. Citalopram Hydrobromide Oral. Lidocaine External. LORazepam Oral. Neurontin Oral. Omeprazole Oral. Phenazopyridine HCl Oral. Tylenol Oral. Prescription Medications: Macrobid 100 mg: take 1 capsule orally every 12 hours for 5 days. No refill. Substitution is permissible. (disp 10 caps) Lidocaine 2% oral topical solution. Gargle and spit every 4 hours as needed for sore throat. Disp 1 bottle. No refills. Follow-up: Return to the emergency department as needed. Follow up with your doctor in three days. Reason for referral: recheck today's concerns. Summary of care provided to patient via paper. Screening today revealed the patient's blood pressure to be in the normal range. The patient should follow up with a primary care provider for blood pressure management. Understanding of the discharge instructions verbalized by patient. Discharge instructions reviewed (care consultant). ADDITIONAL INFORMATION Viral Respiratory Illness [Adult] You have an Upper Respiratory Illness (URI) caused by a virus. This illness is contagious during the first few days. It is spread through the air by coughing and sneezing or by direct contact (touching the sick person and then touching your own eyes, nose or mouth). Most viral illnesses go away within 7-10 days with rest and simple home remedies. Sometimes, the illness may last for several weeks. Antibiotics will not kill a virus and are generally not prescribed for this condition. Home Care: 1) If symptoms are severe, rest at home for the first 2-3 days. When you resume activity, don't let yourself get too tired. 2) Avoid being exposed to cigarette smoke (yours or others). 3) Tylenol (acetaminophen) or ibuprofen (Advil, Motrin) will help fever, muscle aching and headache. (Persons under 18 with fever should not take aspirin since this may cause liver damage.) 4) Your appetite may be poor, so a light diet is fine. Avoid dehydration by drinking 6-8 glasses of fluids per day (water, soft drinks, juices, tea, soup). Extra fluids will help loosen secretions in the nose and lungs. 5) [id number] cold medicines will not shorten the length of time youre sick, but they may be helpful for the following symptoms: cough (Robitussin DM); sore throat (Chloraseptic lozenges or spray); nasal and sinus congestion (Actifed, Sudafed, Chlortrimeton). Follow Up with your doctor or as advised if you dont improve over the next week. Get Prompt Medical Attention if any of the following occur: -- Cough with lots of colored sputum (mucus) or blood in your sputum -- Chest pain, shortness of breath, wheezing or have trouble breathing -- Severe headache; face, neck or ear pain -- Fever over 100.4 F (38.0 C) for more than three days -- You cant swallow due to throat pain Dehydration (Adult) Dehydration occurs when your body loses too much fluid. This may be the result of vomiting a lot or from diarrhea,sweating a lot, or a high fever. It may also happen if you dont drink enough fluid when youre sick. Misuse of diuretics (water pills) can also be a cause. Symptoms include thirst and feeling dizzy, weak, fatigued, or very drowsy. The diet described below is usually enough to treat most cases. Sometimes you may needmedicine. Home Care Follow these guidelines for home care: Drink at least 12 8-ounce glasses of fluid every day to overcome the dehydration. Fluid may include water; orange juice; lemonade; apple, grape, and cranberry juice; clear fruit drinks; electrolyte replacement and sports drinks; and teas and coffee without caffeine. If you have been diagnosed with a kidney disease, ask your doctor how much and what types of fluids you should drink to prevent dehydration. If you have kidney disease, drinking too much fluid can cause it build up in the your body and be dangerous to your health. If you have fever, muscle aching, or headache from a viral syndrome, you may useacetaminophen or ibuprofen, unless another medicine was prescribed for this.If you have chronic liver or kidney disease or ever had a stomach ulcer or GI bleeding, talk with your doctor before using these medicines. Don't take aspirin if you are younger than 18 and are ill with a fever.Aspirin raises the chance forsevere liver injury. Follow-up care Follow up with your health care provider if you don't get better in the next 24 to 48 hours. When to seek medical care Get prompt medical attention if any of theseoccur: Continued vomiting (cant keep liquids down) Frequent diarrhea (more than 5 times a day); blood (red or black color) or mucus in diarrhea Blood in vomit or stool Swollen abdomen or increasing abdominal pain Weakness, dizziness, or fainting Unusually drowsy or confused Reduced urine output or extreme thirst Fever of 100.4 F (38 C) oral or higher that does not get better with fever medication Bladder Infection,Female (Adult) A bladder infection ("cystitis" or "UTI") usually causes a constant urge to urinate and a burning when passing urine. Urine may be cloudy, smelly or dark. There may be pain in the lower abdomen. A bladder infection occurs when bacteria from the vaginal area enter the bladder opening (urethra). This can occur from sexual intercourse, wearing tight clothing, dehydration and other factors. Home Care: Drink lots of fluids (at least 6-8 glasses a day, unless you must restrict fluids for other medical reasons). This will force the medicine into your urinary system and flush the bacteria out of your body. Avoid sexual intercourse until your symptoms are gone. Avoid caffeine, alcohol and spicy foods. These can irritate the bladder. A bladder infection is treated with antibiotics. You may also be given Pyridium (generic = phenazopyridine) to reduce the burning sensation. This medicine will cause your urine to become a bright orange color. The orange urine may stain clothing. You may wear a pad or panty-liner to protect clothing. Preventing Future Infections: Always wipe from front to back after a bowel movement. Keep the genital area clean and dry. Drink plenty of fluids each day to avoid dehydration. Both sexual partners should wash before intercourse. Urinate right after intercourse to flush out the bladder. Wear cotton underwear and cotton-lined panty hose; avoid tight-fitting pants. If you are on control pills and are having frequent bladder infections, discuss with your doctor. Follow Up: Return to this facility or see your doctor if ALL symptoms are not gone after three days of treatment. Get Prompt Medical Attention if any of the following occur: Fever of 100.4F (38C) or higher, or as directed by your healthcare provider No improvement by the third day of treatment Increasing back or abdominal pain Repeated vomiting; unable to keep medicine down Weakness, dizziness or fainting Vaginal discharge Pain, redness or swelling in the labia (outer vaginal area) Nitrofurantoin, Nitrofurantoin, Macrocrystalline Oral capsule What is this medicine? NITROFURANTOIN (reba troe fyoor AN toyn) is an antibiotic. It is used to treat urinary tract infections. How should I use this medicine? Take this medicine by mouth with a glass of water. Follow the directions on the prescription label. Take this medicine with food or milk. Take your doses at regular intervals. Do not take your medicine more often than directed. Do not stop taking except on your doctor's advice. Talk to your deck officer regarding the use of this medicine in children. While this drug may be prescribed for selected conditions, precautions do apply. What side effects may I notice from receiving this medicine? Side effects that you should report to your doctor or health care administrative tech as soon as possible: allergic reactions like skin rash or hives, swelling of the face, lips, or tongue chest pain cough difficulty breathing dizziness, drowsiness fever or infection joint aches or pains pale or blue-tinted skin redness, blistering, peeling or loosening of the skin, including inside the mouth tingling, burning, pain, or numbness in hands or feet unusual bleeding or bruising unusually weak or tired yellowing of eyes or skin Side effects that usually do not require medical attention (report to your doctor or health care administrative tech if they continue or are bothersome): dark urine diarrhea headache loss of appetite nausea or vomiting temporary hair loss What may interact with this medicine? antacids containing magnesium trisilicate probenecid quinolone antibiotics like ciprofloxacin, lomefloxacin, norfloxacin and ofloxacin sulfinpyrazone What if I miss a dose? If you miss a dose, take it as soon as you can. If it is almost time for your next dose, take only that dose. Do not take double or extra doses. Where should I keep my medicine? Keep out of the reach of children. Store at room temperature between 15 and 30 degrees C (59 and 86 degrees F). Protect from light. Throw away any unused medicine after the expiration date. What should I tell my health care provider before I take this medicine? They need to know if you have any of these conditions: anemia diabetes [id number] dehydrogenase deficiency kidney disease liver disease lung disease other chronic illness an unusual or allergic reaction to nitrofurantoin, other antibiotics, other medicines, foods, dyes or preservatives or trying to get breast-feeding What should I watch for while using this medicine? Tell your doctor or health care administrative tech if your symptoms do not improve or if you get new symptoms. Drink several glasses of water a day. If you are taking this medicine for a long time, visit your doctor for regular checks on your progress. If you are diabetic, you may get a false positive result for sugar in your urine with certain brands of urine tests. Check with your doctor. You have been given the following additional information: Uri, Viral, No Abx (Adult) Dehydration (Adult) Bladder Infection, Female (Adult) Nitrofurantoin, Nitrofurantoin, Macrocrystalline Oral capsule (Electronically signed by Maxx Mendieta Dr. 03/05/2017 22:56)
--- NOTE | 2017-03-05 22:56 | ED MED RECONCILIATION SUMMARY ---
Patient: ANGELINE SCHUMACHER Medication Reconciliation Report [facility] VisitID: [id number] [place] [address] 41y, F Registration Date/Time: 03/05/2017 Weight: 48.0 kg Height/Length: 69 in. BMI: 15.6 ALLERGIES: Amoxicillin, Bactrim, Levaquin, Oxycodone, Phenergan The patient's Home Medications are listed below: CONTINUE TAKING THE FOLLOWING MEDICATIONS: Albuterol Sulfate Inhalation Baclofen External Citalopram Hydrobromide Oral Lidocaine External LORazepam Oral Neurontin Oral Omeprazole Oral Phenazopyridine HCl Oral Tylenol Oral The source(s) of the original Home Medication information: Not obtained. The following Medications were given to the patient in the Emergency Department: Duoneb [Neb Tx] Neb TX 1 unit dose, administered: 03/05/2017 9:29:00 AM Morphine [IVP] IVP 4 mg, administered: 03/05/2017 9:45:00 AM IV NS IV Fluids bolus 0, then 999 mL/hr, administered: 03/05/2017 9:45:00 AM IV NS IV Fluids bolus 0, then 999 mL/hr, administered: 03/05/2017 11:34:00 AM Tylenol [PO] PO 650 mg, administered: 03/05/2017 11:34:00 AM Nitrofurantoin [PO] PO 100 mg, administered: 03/05/2017 12:52:00 PM GI COCKTAIL WHITE [PO] PO 30 mL, administered: 03/05/2017 12:53:00 PM The following Medications were prescribed to the patient: Lidocaine 2% oral topical solution. Gargle and spit every 4 hours as needed for sore throat. Disp 1 bottle. No refills. -- Maxx Mendieta Dr. Macrobid 100 mg: take 1 capsule orally every 12 hours for 5 days. No refill. Substitution is permissible.(disp 10 caps) -- Maxx Mendieta Dr.
--- NOTE | 2017-03-05 22:56 | ED MAR SUMMARY ---
..... Medication Administration Record [facility] [address] [place] [address] Patient: ANGELINE SCHUMACHER Visit ID: [id number] 41y, F Weight: 48.0 kg Height/Length: 69 in BMI: 15.6 ALLERGIES: Oxycodone, Amoxicillin, Bactrim, Levaquin, Phenergan Given 09:03/05/2017 Bran Bentley, Medication Administered: DUONEB [NEB TX] (IPRATROPIUM-ALBUTEROL), Dose: 1 unit dose Neb TX. Medication Ordered: DuoNeb Neb Tx 1 unit dose (NOW). Given 09:03/05/2017 Keith Gross R.N. Medication Administered: MORPHINE [IVP], Dose: 4 mg IVP over 1 minute(s), Site: #1 right wrist. Medication Ordered: Morphine IV 4 mg (HIGH ALERT MEDICATION, NOW). Start 09:03/05/2017 Keith Gross R.N., Stop 11:30 03/05/2017 Keith Gross R.N. Medication Administered: IV NS (SALINE), Dose: IV Fluids over 1 hour(s), Rate: 999 mL/hr, Dispensed: 1000 mL bag, Site: #1 right wrist. Medication Ordered: IV NS : initial bolus 1000 mL (1000 mL/hr), then none - for X1 (NOW). Given 11:03/05/2017 Keith Gross R.N. Medication Administered: TYLENOL [PO] (ACETAMINOPHEN), Dose: 650 mg Tablets PO. Medication Ordered: Tylenol PO 650 mg (NOW). Start 11:03/05/2017 Keith Gross R.N., Stop 12:45 03/05/2017 Keith Gross R.N. Medication Administered: IV NS (SALINE), Dose: IV Fluids over 1 hour(s), Rate: 999 mL/hr, Dispensed: 1000 mL bag, Site: #1 right wrist. Medication Ordered: IV NS : initial bolus 1000 mL (1000 mL/hr), then none - for X1 (NOW). Given 12:52 03/05/2017 Keith Gross R.N. Medication Administered: NITROFURANTOIN [PO], Dose: 100 mg Capsules PO. Medication Ordered: Nitrofurantoin PO 100 mg (NOW). Given 12:53 03/05/2017 Keith Gross R.N. Medication Administered: GI COCKTAIL WHITE [PO] (SIMETHICONE), Dose: 30 mL Oral Suspension PO. Medication Ordered: GI Cocktail WHITE PO 30 mL (NOW).
--- NOTE | 2017-03-05 22:56 | ED MAR SUMMARY ---
..... Medication Administration Record [facility] [address] [place] [address] Patient: ANGELINE SCHUMACHER Visit ID: [id number] 41y, F Weight: 48.0 kg Height/Length: 69 in BMI: 15.6 ALLERGIES: Oxycodone, Amoxicillin, Bactrim, Levaquin, Phenergan Given 09:03/05/2017 Bran Bentley, Medication Administered: DUONEB [NEB TX] (IPRATROPIUM-ALBUTEROL), Dose: 1 unit dose Neb TX. Medication Ordered: DuoNeb Neb Tx 1 unit dose (NOW). Given 09:03/05/2017 Keith Gross R.N. Medication Administered: MORPHINE [IVP], Dose: 4 mg IVP over 1 minute(s), Site: #1 right wrist. Medication Ordered: Morphine IV 4 mg (HIGH ALERT MEDICATION, NOW). Start 09:03/05/2017 Keith Gross R.N., Stop 11:30 03/05/2017 Keith Gross R.N. Medication Administered: IV NS (SALINE), Dose: IV Fluids over 1 hour(s), Rate: 999 mL/hr, Dispensed: 1000 mL bag, Site: #1 right wrist. Medication Ordered: IV NS : initial bolus 1000 mL (1000 mL/hr), then none - for X1 (NOW). Given 11:03/05/2017 Keith Gross R.N. Medication Administered: TYLENOL [PO] (ACETAMINOPHEN), Dose: 650 mg Tablets PO. Medication Ordered: Tylenol PO 650 mg (NOW). Start 11:03/05/2017 Keith Gross R.N., Stop 12:45 03/05/2017 Keith Gross R.N. Medication Administered: IV NS (SALINE), Dose: IV Fluids over 1 hour(s), Rate: 999 mL/hr, Dispensed: 1000 mL bag, Site: #1 right wrist. Medication Ordered: IV NS : initial bolus 1000 mL (1000 mL/hr), then none - for X1 (NOW). Given 12:52 03/05/2017 Keith Gross R.N. Medication Administered: NITROFURANTOIN [PO], Dose: 100 mg Capsules PO. Medication Ordered: Nitrofurantoin PO 100 mg (NOW). Given 12:53 03/05/2017 Keith Gross R.N. Medication Administered: GI COCKTAIL WHITE [PO] (SIMETHICONE), Dose: 30 mL Oral Suspension PO. Medication Ordered: GI Cocktail WHITE PO 30 mL (NOW).
== END 2017-03-05 13:55 | disposition home or self-care (01) ==
LOC: ED SRH 08:09
DX: E86.0 Dehydration (principal); B34.9 Viral infection, unspecified; N39.0 Urinary tract infection, site not specified; G82.50 Quadriplegia, unspecified; Z96.0 Presence of urogenital implants; Z79.899 Other long term (current) drug therapy; Z88.0 Allergy status to penicillin; Z88.8 Allergy status to other drugs, medicaments and biological substances; Z88.1 Allergy status to other antibiotic agents; Z88.5 Allergy status to narcotic agent
CPT/HCPCS: 90004; 90070; 90074; 90100; 90148; 90154; 90159; 90469; 90627; 91400; 92031; 93070; 95059